=== PATIENT | female | born 1995 | race Caucasian/White ===

== ENCOUNTER 2016-07-15 11:49 | Emergency (ER) | payer OTHER ==
[2016-07-15 12:11] VITALS: BP 108/69
--- NOTE | 2016-07-15 13:10 | UC ---
Complaint Female HPI - HPI Summary HPI Summary: Pt c/o urinary frequency, urgency and dysuria X 3 days. Pt has history of UTI's - History Of Current Complaint Chief Complaint: UCGU Stated Complaint: POSSIBLE UTI Time Seen by Provider: 07/15/16 12:18 Hx Obtained From: Patient Hx Last Menstrual Period: 07/12/16 ?: No Onset/Duration: Gradual Onset, Lasting Days Timing: Constant Severity Initially: Mild Severity Currently: Mild Pain Intensity: 2 Pain Scale Used: 0-10 Numeric Character: Dull, Burning Aggravating Factor(s): Urination - Allergies/Home Medications Allergies/Adverse Reactions: Allergies Allergy/AdvReac Type Severity Reaction Status Date / Time Bee Venom Allergy Intermediate Swelling Verified 07/15/16 12:04 Pollen Extract Allergy Mild Eyes Verified 07/15/16 12:04 Itchy/Swollen/Red/Watery PMH/Surg Hx/FS Hx/Imm Hx Previously Healthy: Yes Endocrine History Of: Denies: Diabetes, Thyroid Disease Cardiovascular History Of: Denies: Cardiac Disorders, Hypertension, Pacemaker/ICD, Congestive Heart Failure, Deep Vein Thrombosis Respiratory History Of: Reports: Asthma - PRN INHALER Denies: COPD, Pneumonia, Pulmonary Embolism GI/ History Of: Denies: Ulcer, Gastrointestinal Bleed, Gall Bladder Disease, Kidney Stones Neurological History Of: Reports: Migraine Denies: TIA, CVA, Dementia, Seizures Psychological History Of: Reports: Anxiety, Depression - CONTROL WITH MEDS, Bipolar Disorder Denies: Schizophrenia Cancer History Of: Denies: Lung Cancer Other History Of: Negative For: Anticoagulant Therapy - Surgical History Surgical History: Yes Surgery Procedure, Year, and Place: 2002 BILATERAL MYRINGOTOMY WITH TUBE INSERTION, [facility] [place]. MULTIPLE MYRINGOTOMY WITH TUBE INSERTIONS, (LAST ONE 02/2014), [place]. HERNIA REPAIR LOWER ABDOMEN X 2, AGE 3 AND 4, - Family History Known Family History: Positive: None, Cardiac Disease, Diabetes - Social History Alcohol Use: None Alcohol Amount: pt reports 10 drinks per day [id number] Substance Use Type: None Substance Use Comment - Amount & Last Used: alcohol - last drink 09/01 Smoking Status (MU): Light Every Day Tobacco Smoker Type: Cigarettes Amount Used/How Often: 4 cigs/day Have You Smoked in the Last Year: Yes Household Exposure Type: Cigarettes - Immunization History Most Recent Influenza Vaccination: 2015 Most Recent Tetanus Shot: UTD Most Recent Pneumonia Vaccination: N/A Vaccination Up to Date: Yes Review of Systems Constitutional: Negative Skin: Negative Eyes: Negative ENT: Negative Respiratory: Negative Cardiovascular: Negative Genitourinary: Dysuria, Frequency, Urgency, Other - low back ache Motor: Negative Neurovascular: Negative Musculoskeletal: Myalgia Neurological: Negative Psychological: Negative All Other Systems Reviewed And Are Negative: Yes Physical Exam Triage Information Reviewed: Yes Appearance: Well-Appearing Vital Signs: Initial Vital Signs Temp 98.1 F 07/15/16 12:07 Pulse 90 07/15/16 12:07 Resp 16 07/15/16 12:07 BP 108/69 07/15/16 12:07 Pulse Ox 97 07/15/16 12:07 Eye Exam: Normal ENT Exam: Normal Neck exam: Normal Respiratory Exam: Normal Cardiovascular Exam: Normal Abdominal Exam: Other Abdomen Description: Positive: CVA Tenderness (R), CVA Tenderness (L) Musculoskeletal Exam: Normal Neurological Exam: Normal Psychological Exam: Normal Skin Exam: Normal Complaint Female Dx - Differential Dx/Diagnosis Differential Diagnosis/HQI/PQRI: Urinary Tract Infection Provider Diagnoses: UTI Discharge - Discharge Plan Condition: Stable Disposition: HOME Prescriptions: Cephalexin CAP* [Keflex 500 CAP*] 500 mg PO Q12H #14 cap Phenazopyridine TAB* [Pyridium 100 mg TAB*] 100 mg PO TID #3 tab Patient Education Materials: Urinary Tract Infection in Women (ED) Referrals: Altagracia Hughes NP [Primary Care Provider] - If Needed Additional Instructions: Please follow up with your PCP or return to clinic as needed. You have indicated that you have been seen by a urologist in the past. Please follow up with this provider as needed.
== END 2016-07-15 12:50 | disposition home or self-care (01) ==
LOC: UCEAST 11:49
DX: N39.0 Urinary tract infection, site not specified (principal); J45.909 Unspecified asthma, uncomplicated; F17.210 Nicotine dependence, cigarettes, uncomplicated; F31.9 Bipolar disorder, unspecified; F41.9 Anxiety disorder, unspecified
CPT/HCPCS: 81003; 84702; 87077; 87086; 87186; 99212; G0463

== ENCOUNTER 2016-07-21 13:39 | Emergency (ER) | payer OTHER ==
[2016-07-21 13:54] VITALS: BP 120/86
--- NOTE | 2016-07-21 15:02 | RAD ---
Indication: Left-sided back pain, hematuria. CT of the abdomen and pelvis was performed without oral or IV contrast administration. Coronal and sagittal reconstructed images were obtained. The lung bases demonstrate no pleural fluid, nodules or masses heart is of normal size without evidence of pericardial effusion. Liver is normal in size. No focal lesions or intrahepatic ductal dilatation is noted. The gallbladder demonstrates no calcified gallstones. No pericholecystic fluid identified. The spleen is normal in size. No adrenal lesions are noted. The kidneys demonstrate no hydronephrosis in either kidney. No retroperitoneal lymphadenopathy. No dilated small bowel. CT of the pelvis demonstrates uterus to be unremarkable. Urinary bladder demonstrates mild diffuse wall thickening. Partially collapsed. No hernias are noted. IMPRESSION: NO EVIDENCE OF OBSTRUCTIVE UROPATHY IS NOTED. PARTIALLY COLLAPSED URINARY BLADDER WITH NONSPECIFIC WALL THICKENING OF THE URINARY BLADDER.
[2016-07-21] MEDS ORDERED: cefTRIAXone VIAL(*) 1,000 MG VIAL IM ONE (15:49)
[2016-07-21] MEDS ORDERED: Lidocaine 1% MPF* 2 ML VIAL ONE (16:03)
--- NOTE | 2016-07-21 16:31 | UC ---
Complaint Female HPI - HPI Summary HPI Summary: SEEN HERE 06/14/16 AND TX WITH KEFLEX FOR A UTI. SX HAVE NOT IMPROVED AT ALL. DYSURIA IS WORSE. YESTERDAY NOTICED BLOOD IN THE URINE. NO FEVER. - History Of Current Complaint Chief Complaint: UCGU Stated Complaint: BLEEDING AND URINARY PAIN Time Seen by Provider: 07/21/16 13:57 Hx Obtained From: Patient Hx Last Menstrual Period: 07/06/16 Onset/Duration: Gradual Onset, Lasting Days, Worse Since Timing: Constant Severity Initially: Moderate Severity Currently: Severe Pain Intensity: 9 Pain Scale Used: 0-10 Numeric Character: Burning Aggravating Factor(s): Urination Alleviating Factor(s): Nothing Associated Signs And Symptoms: Negative: Fever, Back Pain, Vaginal Bleeding/ Discharge, Vaginal Discharge, Nausea - Allergies/Home Medications Allergies/Adverse Reactions: Allergies Allergy/AdvReac Type Severity Reaction Status Date / Time Bee Venom Allergy Intermediate Swelling Verified 07/15/16 12:04 Pollen Extract Allergy Mild Eyes Verified 07/15/16 12:04 Itchy/Swollen/Red/Watery PMH/Surg Hx/FS Hx/Imm Hx Endocrine History Of: Denies: Diabetes, Thyroid Disease Cardiovascular History Of: Denies: Cardiac Disorders, Hypertension, Pacemaker/ICD, Congestive Heart Failure, Deep Vein Thrombosis Respiratory History Of: Reports: Asthma - PRN INHALER Denies: COPD, Pneumonia, Pulmonary Embolism GI/ History Of: Denies: Ulcer, Gastrointestinal Bleed, Gall Bladder Disease, Kidney Stones Neurological History Of: Reports: Migraine Denies: TIA, CVA, Dementia, Seizures Psychological History Of: Reports: Anxiety, Depression - CONTROL WITH MEDS, Bipolar Disorder Denies: Schizophrenia Cancer History Of: Denies: Lung Cancer Other History Of: Negative For: Anticoagulant Therapy - Surgical History Surgical History: Yes Surgery Procedure, Year, and Place: 2002 BILATERAL MYRINGOTOMY WITH TUBE INSERTION, [facility] [place]. MULTIPLE MYRINGOTOMY WITH TUBE INSERTIONS, (LAST ONE 02/2014), [place]. HERNIA REPAIR LOWER ABDOMEN X 2, AGE 3 AND 4, - Family History Known Family History: Positive: Cardiac Disease, Diabetes - Social History Alcohol Use: Occasionally Alcohol Amount: pt reports 10 drinks per day [id number] Substance Use Type: None Substance Use Comment - Amount & Last Used: alcohol - last drink 09/01 Smoking Status (MU): Light Every Day Tobacco Smoker Type: Cigarettes Amount Used/How Often: 4 cigs/day Have You Smoked in the Last Year: Yes Household Exposure Type: Cigarettes - Immunization History Most Recent Influenza Vaccination: 2016 Most Recent Tetanus Shot: UTD Most Recent Pneumonia Vaccination: N/A Vaccination Up to Date: Yes Review of Systems Constitutional: Negative Respiratory: Negative Cardiovascular: Negative Gastrointestinal: Abdominal Pain Genitourinary: Dysuria, Hematuria, Frequency, Urgency All Other Systems Reviewed And Are Negative: Yes Physical Exam Triage Information Reviewed: Yes Appearance: Well-Appearing, No Pain Distress, Well-Nourished Vital Signs: Initial Vital Signs Temp 98.3 F 07/21/16 13:48 Pulse 96 07/21/16 13:48 Resp 18 07/21/16 13:48 BP 120/86 07/21/16 13:48 Pulse Ox 99 07/21/16 13:48 Vital Signs Reviewed: Yes Eyes: Positive: Conjunctiva Clear ENT: Positive: Hearing grossly normal Neck: Positive: Supple, Nontender, No Lymphadenopathy Respiratory Exam: Normal Cardiovascular Exam: Normal Abdomen Description: Positive: Soft, CVA Tenderness (L) - EQUIVOCAL, Other: - SUPRAPUBIC TTP. Negative: CVA Tenderness (R), Distended, Guarding Musculoskeletal: Positive: No Edema Neurological: Positive: Alert Psychological: Positive: Age Appropriate Behavior Skin: Negative: rashes Diagnostics - Laboratory Diagnostic Studies Completed/Ordered: URINE DIP SP. GR 1.010, 3+ LEUKS, 3+ BLOOD , POS NITRITES - Radiology CT ABD/PELVIS W/O CONTRAST Xray Interpretation: Positive (See Comments) - NONSPECIFIC WALL THICKENING OF THE URINARY BLADDER. Radiology Interpretation Completed By: Radiologist Complaint Female Dx - Differential Dx/Diagnosis Provider Diagnoses: HEMORRHAGIC CYSTITIS - Physician Notifications Discussed Patient Care With: DR. VIDAL Time Discussed With Above Provider: 15:40 - ADVISED ROCEPHIN, BACTRIM AND F/U IF NOT IMPROVING Discharge - Discharge Plan Condition: Stable Disposition: HOME Prescriptions: Sulfamethox/Trimethoprim DS* [Bactrim DS 800/160 TAB*] 1 tab PO BID #20 tab Patient Education Materials: Urinary Tract Infection in Women (ED) Forms: *Work Release Referrals: Altagracia Hughes NP [Primary Care Provider] - If Needed Henrik Vidal MD [Medical Doctor] - If Needed Additional Instructions: Cystitis is inflammation of the urinary bladder, usually caused by infection. The clinical manifestations of hemorrhagic cystitis range from microscopic hematuria to extensive bladder hemorrhage with clot formation and obstruction. YOU HAVE RECEIVED AN INJECTION OF THE ANTIBIOTIC ROCEPHIN TODAY AND PLACED ON 10 DAYS OF BACTRIM. TAKE IT FOR THE FULL 10 DAYS. OTC MEDS NEEDED FOR DISCOMFORT. NO SEX UNTIL SYMPTOMS ARE COMPLETELY RESOLVED. STAY WELL HYDRATED. IF YOU DO NOT IMPROVE WITH ERWIN ABOVE TREATMENT SEEK FOLLOW-UP WITH DR. VIDAL (UROLOGY).
== END 2016-07-21 16:16 | disposition home or self-care (01) ==
LOC: UCEAST 13:39
DX: N30.91 Cystitis, unspecified with hematuria (principal); Z32.02 Encounter for pregnancy test, result negative; J45.909 Unspecified asthma, uncomplicated; G43.909 Migraine, unspecified, not intractable, without status migrainosus; F41.8 Other specified anxiety disorders; F31.9 Bipolar disorder, unspecified; F17.210 Nicotine dependence, cigarettes, uncomplicated
CPT/HCPCS: 74176; 81003; 84702; 87077; 87086; 87186; 96372; 99212; G0463; J0696

== ENCOUNTER 2016-10-09 11:28 | Emergency (ER) | payer OTHER ==
[2016-10-09 11:56] VITALS: BP 106/70
--- NOTE | 2016-10-09 12:42 | UC ---
Complaint Female HPI - HPI Summary HPI Summary: complaint of burning with urination for approx 2 days increase in frequency and urgency denies abdominal apin ,back pain, flank pain denies fever and chills not taking any medications for symptoms LMP 09/20/16 - History Of Current Complaint Chief Complaint: UCGU Stated Complaint: URINARY ISSUE Time Seen by Provider: 10/09/16 12:28 Hx Obtained From: Patient Hx Last Menstrual Period: 09/20/16 - Allergies/Home Medications Allergies/Adverse Reactions: Allergies Allergy/AdvReac Type Severity Reaction Status Date / Time Bee Venom Allergy Intermediate Swelling Verified 10/09/16 11:49 Pollen Extract Allergy Mild Eyes Verified 10/09/16 11:49 Itchy/Swollen/Red/Watery Home Medications: Home Medications ARIPiprazole TAB* [Abilify TAB*] 400 mg PO 10/09/16 [History] PMH/Surg Hx/FS Hx/Imm Hx Previously Healthy: Yes - has had hematiuria in the past Other History Of: Negative For: HIV, Hepatitis B, Hepatitis C, Anticoagulant Therapy - Surgical History Surgical History: Yes Surgery Procedure, Year, and Place: 2002 BILATERAL MYRINGOTOMY WITH TUBE INSERTION, [facility] – [place]. MULTIPLE MYRINGOTOMY WITH TUBE INSERTIONS, (LAST ONE 02/2014), [place]. HERNIA REPAIR LOWER ABDOMEN X 2, AGE 3 AND 4 - Family History Known Family History: Positive: Cardiac Disease, Diabetes Negative: Hypertension - Social History Occupation: Employed Full-time Lives: With Family Alcohol Use: Occasionally Alcohol Amount: pt reports 10 drinks per day [id number] Substance Use Type: None Substance Use Comment - Amount & Last Used: alcohol - last drink 09/01 Smoking Status (MU): Light Every Day Tobacco Smoker Type: Cigarettes Amount Used/How Often: 4 cigs/day Have You Smoked in the Last Year: Yes Household Exposure Type: Cigarettes Cessation Counseling: Patient Advised to Stop - Immunization History Most Recent Influenza Vaccination: 2016 Most Recent Tetanus Shot: UTD Most Recent Pneumonia Vaccination: N/A Vaccination Up to Date: Yes Review of Systems Constitutional: Negative Skin: Negative Eyes: Negative ENT: Negative Respiratory: Negative Cardiovascular: Negative Gastrointestinal: Negative Genitourinary: Dysuria, Hematuria, Frequency, Urgency Motor: Negative Neurovascular: Negative Musculoskeletal: Negative Neurological: Negative Psychological: Negative All Other Systems Reviewed And Are Negative: Yes Physical Exam Triage Information Reviewed: Yes Appearance: No Pain Distress, Well-Nourished Vital Signs: Initial Vital Signs Temp 98.3 F 10/09/16 11:51 Pulse 81 10/09/16 11:51 Resp 18 10/09/16 11:51 BP 106/70 10/09/16 11:51 Pulse Ox 100 10/09/16 11:51 Vital Signs Reviewed: Yes Eyes: Positive: Conjunctiva Clear ENT: Positive: Pharynx normal, TMs normal Neck: Positive: No Lymphadenopathy Respiratory: Positive: Lungs clear, Normal breath sounds, No respiratory distress Cardiovascular: Positive: RRR, No Murmur, Pulses Normal Abdomen Description: Positive: Nontender, No Organomegaly, Soft. Negative: CVA Tenderness (R), CVA Tenderness (L), Distended, Guarding Bowel Sounds: Positive: Present Musculoskeletal: Positive: No Edema Neurological: Positive: Alert Psychological Exam: Normal Skin Exam: Normal Complaint Female Dx - Differential Dx/Diagnosis Differential Diagnosis/HQI/PQRI: Ureteral Stone, Urinary Tract Infection Provider Diagnoses: UTI Discharge - Discharge Plan Condition: Stable Disposition: HOME Patient Education Materials: Urinary Tract Infection in Women (ED) Additional Instructions: Please start antibiotic as directed Increase fluids and rest Take acetaminophen or ibuprofen for fever or pain Please review your discharge instructions. If your symptoms do not improve please call your primary care provider or return to urgent care.
== END 2016-10-09 13:00 | disposition home or self-care (01) ==
LOC: UCEAST 11:28
DX: N39.0 Urinary tract infection, site not specified (principal); Z72.0 Tobacco use
CPT/HCPCS: 81003; 84702; 87086; 99212; G0463

== ENCOUNTER 2017-05-07 11:42 | Emergency (ER) | payer OTHER ==
--- OUTSIDE RECORDS SUMMARY | 2017-05-07 12:33 | XMS REPORT ---
:1995 Author Care Team Providers Name Role Phone Kain Moon MD Unavailable Colby Flower MD Primary Care Provider Yovani Trevino Unavailable Reason for Referral Referral Problems All Visits Effective Date(s) Provider Condition Status Asthma 04/11/2017 James Lezama MD Active Attention-deficit Hyperactivity 04/11/2017 James Lezama MD Active Disorder Bipolar Disorder Nos 04/11/2017 James Lezama MD Active Depression 04/11/2017 James Lezama MD Active Hearing Loss 04/11/2017 James Lezama MD Active Note: 2nd to chronic ear infections Hepatitis 04/11/2017 James Lezama MD Active Otitis Externa 04/11/2017 James Lezama MD Active Plan of Care Pending Tests Order Diagnosis Results Due Ordering Provider Lab Alkaline Phosphatase; 04/27/17 James Lezama MD Bilirubin, Total; BUN; Calcium; Albumin; Protein, Total; Sodium; Potassium; Chloride; Carbon Dioxide Content; Creatinine; AST; ALT; HCV RNA Detect/Quant Lab Urinalysis with Culture 04/27/17 James Lezama MD if Indicated Lab HCV Genotype After 05/16/17 James Lezama MD Amplification Future Appointments Date Time [place] [facility] 4:00PM [facility] Yovani Harvey [facility] Instructions No Instructions Recorded Medications Current Medications (continue as prescribed) Abilify 20 MG Tablet 04/11/2017 Diagnosis: Ciprodex 0.3-0.1 % Suspension 04/11/2017 Diagnosis: Acute actinic otitis externa, bilateral 4 gtt in ears BID x 7 days Medications Administered No Administered Medications Recorded Vital Signs Vital Name 04/11/2017 02:10P Blood Pressure Sitting L 115/83 BP Cuff Size Regular Pulse Rate-Sitting (bpm) 95 Pulse Rhythm Regular Respiration Rate (breaths/min) 20 Temp-Tympanic (F) 98.3 Height (in) 67.75 Weight (lb) 163.1875 Body Mass Index (kg/m2) 25.0 Body Surface Area (m2) 1.87 Pain Level 0 Oxygen Saturation (%) 99 Lab Results No Lab Results Recorded For Specified Dates History of Present Illness No History of Present Illness Recorded Social History Description Last Updated Normal appetite 04/30/2017 Drug use 5 months clean cocaine , pot 04/30/2017 No serious weight loss attempts 04/30/2017 Former smoker 04/30/2017 No high-fat diet 04/30/2017 Lives alone 04/30/2017 Diet does not need reduction of caloric intake 04/30/2017 Diet needs elimination of junk food 04/30/2017 Caffeine use 2-3 cups daily 04/30/2017 Alcohol use rare 04/30/2017 Tobacco use 3-4 cigarettes daily 04/30/2017 1 meals per day 04/30/2017 Not taking vitamin supplements 04/30/2017 Single 04/30/2017 Diet provides sufficient food variety 04/30/2017 Diet provides sufficient fruit 04/30/2017 Diet provides sufficient vegetables 04/30/2017 0 snacks per day 04/30/2017 A high-salt diet not from processed foods 04/30/2017 A high-sugar diet not including sweet snacks 04/30/2017 Unemployed 04/30/2017 Smoking Status Unknown Procedures and Surgical/Medical History Surgical History Last Updated History of inguinal hernia repair bilateral at age 3 and 4 yrs old 04/30/2017 History of otolaryngologic surgery bilateral ear tubes since age 7 yr 2017 old Medical History Last Updated Hearing loss 04/30/2017 Date of last menstruation 04/07/2017 04/30/2017 A recent examination by an staff scientist 201604/30/2017 Denied sexual activity 04/30/2017 Normal history of cervical Pap smear 04/30/2017 History of hepatitis, C virus 04/30/2017 History of varicella 04/30/2017 History of psychiatric disorders adhd; bipolar disorder 04/30/2017 History of asthma 04/30/2017 History of depression 04/30/2017 History of hepatic disorders 04/30/2017 Last saw a dentist 08/201604/30/2017 Family History Description Last Updated Father 49 years old 04/30/2017 Mother 40 years old 04/30/2017 Father in good health and denies significant illness 04/30/2017 Maternal grandmother's history of diabetes mellitus 04/30/2017 Maternal history of cancer cercival cancer 04/30/2017 Maternal grandmother's history of cancer cervical cancer 04/30/2017 Maternal grandmother's history of respiratory disorder copd 04/30/2017 Paternal history of acute myocardial infarction 04/30/2017 Paternal grandfather's history of acute myocardial infarction 04/30/2017 Paternal grandmother's history of coronary artery disease 04/30/2017 Review of Systems No Review of Systems Recorded Functional and Cognitive Status Description Oriented to time, place, and person Physical Exam No Physical Exam Recorded Immunizations No Immunizations Recorded Allergies Substance Type Reaction Effective Status FLOWER POLLEN Allergy swelling 04/11/2017 Active Bees Allergy Skin Rashes/Hives 04/11/2017 Active Encounters Encounter Provider Location Date Diagnosis [facility] Admit James Lezama MD *[facility] - Family 04/11/2017 f/u for [facility] Chart Update from Flo Griffiths MD 01/16/2017 Phone Call Insurance Plan Name Member ID Group # Subscriber Relationship Effective Dates 1 - [facility] [id number] [facility] Capitated Advance Directives No Advance Directives Recorded
--- OUTSIDE RECORDS SUMMARY | 2017-05-07 12:34 | XMS REPORT ---
:1995 Author Care Team Providers Name Role Phone Colby Flower MD Primary Care Provider Yovani [...] ALT; HCV RNA Detect/Quant Lab Urinalysis with 04/27/17 James Lezama MD Culture if Indicated Future Appointments Date Time Location Provider [facility] [place] Problem Management 05/21/2017 4:00PM *[facility] Yovani Harvey [facility] Future Tests Order Diagnosis Results Due Ordering Provider Referral Specialists ENT Acute actinic otitis 04/11/17 James Lezama MD externa, bilateral Instructions No Instructions Recorded Medications Current Medications [...] Social History Description Last Updated Normal appetite 04/12/2017 Drug use 5 months clean cocaine , pot 04/12/2017 No serious weight loss attempts 04/12/2017 Former smoker 04/12/2017 No high-fat diet 04/12/2017 Lives alone 04/12/2017 Diet does not need reduction of caloric intake 04/12/2017 Diet needs elimination of junk food 04/12/2017 Caffeine use 2-3 cups daily 04/12/2017 Alcohol use rare 04/12/2017 Tobacco use 3-4 cigarettes daily 04/12/2017 1 meals per day 04/12/2017 Not taking vitamin supplements 04/12/2017 Single 04/12/2017 Diet provides sufficient food variety 04/12/2017 Diet provides sufficient fruit 04/12/2017 Diet provides sufficient vegetables 04/12/2017 0 snacks per day 04/12/2017 A high-salt diet not from processed foods 04/12/2017 A high-sugar diet not including sweet snacks 04/12/2017 Unemployed 04/12/2017 Smoking Status Unknown Procedures and Surgical/Medical History Procedures CPT-4 Diagnosis Performing Service Service Date Provider Location 340B Charge 21314 Acute hepatitis James Lezama MD 04/11/2017 ([facility]) C with hepatic coma Surgical History Last Updated History of inguinal hernia repair bilateral at age 3 and 4 yrs old 04/12/2017 History of otolaryngologic surgery bilateral ear tubes since age 7 yr 2017 old Medical History Last Updated Hearing loss 04/12/2017 Date of last menstruation 04/07/2017 04/12/2017 A recent examination by an generator operator straight bevel gear 201604/12/2017 Denied sexual activity 04/12/2017 Normal history of cervical Pap smear 04/12/2017 History of hepatitis, C virus 04/12/2017 History of varicella 04/12/2017 History of psychiatric disorders adhd; bipolar disorder 04/12/2017 History of asthma 04/12/2017 History of depression 04/12/2017 History of hepatic disorders 04/12/2017 Last saw a dentist 08/201604/12/2017 Family History Description Last Updated Father 49 years old 04/12/2017 Mother 40 years old 04/12/2017 Father in good health and denies significant illness 04/12/2017 Maternal grandmother's history of diabetes mellitus 04/12/2017 Maternal history of cancer cercival cancer 04/12/2017 Maternal grandmother's history of cancer cervical cancer 04/12/2017 Maternal grandmother's history of respiratory disorder copd 04/12/2017 Paternal history of acute myocardial infarction 04/12/2017 Paternal grandfather's history of acute myocardial infarction 04/12/2017 Paternal grandmother's history of coronary artery disease 04/12/2017 Review of Systems No Review of Systems Recorded Functional and Cognitive Status Description Oriented to time, place, and person Physical Exam No Physical Exam Recorded Immunizations No Immunizations Recorded Allergies Substance Type Reaction Effective Status FLOWER POLLEN Allergy swelling 04/11/2017 Active Bees Allergy Skin Rashes/Hives 04/11/2017 Active Encounters Encounter Provider Location Date Diagnosis [facility] [place] Hospital Admit James Lezama MD *[facility] - Family 04/11/2017 f/u for [facility] Chart Update from Flo Griffiths MD 01/16/2017 Phone Call Insurance Plan Name Member ID Group # Subscriber Relationship Effective Dates 1 - [facility] [id number] [facility] Capitated Advance Directives No Advance Directives Recorded
[2017-05-07 14:25] LABS: ABS Basophils 0 10^3/ul (0-0.2); ABS Eosinophils 0.1 10^3/ul (0-0.6); ABS Lymphocytes 1.3 10^3/ul (1.0-4.8); ABS Monocytes 0.5 10^3/ul (0-0.8); ABS Neutrophils 3.5 10^3/ul (1.5-7.7); ABS Nucleated RBC 0 10^3/ul; Eosinophil % 1.8 % (0-6); Hematocrit 39 % (35-47); Hemoglobin 12.7 g/dl (12.0-16.0); Lymphocyte % 23.9 % (25-47); Mean Corpuscular HGB Conc 33 g/dl (31-36); Mean Corpuscular Hemoglobin 29 pg (27-31); Mean Corpuscular Volume 88 fL (80-97); Mean Platelet Volume 7 um3 (7.4-10.4); Nucleated Red Blood Cells % 0; Platelet Count 253 10^3/ul (150-450); Red Cell Distribution Width 13 % (10.5-15); White Blood Count 5.4 10^3/ul (3.5-10.8)
[2017-05-07 14:42] LABS: EGFR Non-African American 81.1 (>60)
[2017-05-07 15:14] VITALS: BP 112/70
== END 2017-05-07 15:54 | disposition left against medical advice (07) ==
LOC: ED 11:42
DX: R11.2 Nausea with vomiting, unspecified (principal); Z53.21 Procedure and treatment not carried out due to patient leaving prior to being seen by health care provider
CPT/HCPCS: 36415; 80053; 82150; 82550; 83605; 83690; 84702; 85025; 86140

== ENCOUNTER 2017-05-16 12:39 | Emergency (ER) | payer OTHER ==
--- OUTSIDE RECORDS SUMMARY | 2017-05-16 12:50 | XMS REPORT ---
[...] Amplification Future Appointments Date Time Location Provider [facility] [place] Problem Management 05/21/2017 4:00PM *[facility] - [facility] Instructions No Instructions Recorded Medications Current [...] 04/07/2017 04/30/2017 A recent examination by an route delivery service driver [id number]/30/2017 Denied sexual activity 04/30/2017 Normal history [...] of Systems Recorded Functional and Cognitive Status No Functional or Cognitive Status Recorded Physical Exam No Physical Exam Recorded Immunizations No Immunizations Recorded Allergies Substance Type Reaction Effective Status FLOWER POLLEN Allergy swelling 04/11/2017 Active Bees Allergy Skin Rashes/Hives 04/11/2017 Active Encounters Encounter Provider Location Date Diagnosis Chart Update James Lezama MD 05/07/2017 [facility] [place] Hospital Admit James Lezama MD *[facility] - Family 04/11/2017 f/u for [facility] Chart Update from Flo Griffiths MD 01/16/2017 Phone Call Insurance Plan Name Member ID Group # Subscriber Relationship Effective Dates 1 - [facility] [id number] [facility] Capitated Advance Directives No Advance Directives Recorded
[2017-05-16 13:01] VITALS: BP 97/66
--- NOTE | 2017-05-16 13:06 | UC ---
Complaint Female HPI - HPI Summary HPI Summary: Pt presents for 5 days of urinary pressure, frequency, and burning. She tells me that she has had many UTIs in the past and this feels the same. She had "rough sex" about a week ago and thinks maybe that was the cause. Admits to some right flank pain, but that has improved. Denies fever, chills, SOB, abdominal pain, n/v/d/c. Denies vaginal discharge, bleeding, or odor. She does not want STD testing. - History Of Current Complaint Hx Obtained From: Patient Hx Last Menstrual Period: 05/06/16 Onset/Duration: Gradual Onset Severity Initially: Moderate Severity Currently: Moderate Pain Intensity: 7 Pain Scale Used: 0-10 Numeric Character: Burning Aggravating Factor(s): Urination <Supa Shine - Last Filed: 05/16/17 13:56> <Lacey Gonzalez - Last Filed: 05/16/17 14:13> - History Of Current Complaint Chief Complaint: UCGU Stated Complaint: BURING, FREQUENT URINATION, PAIN IN SIDE Time Seen by Provider: 05/16/17 13:05 - Allergies/Home Medications Allergies/Adverse Reactions: Allergies Allergy/AdvReac Type Severity Reaction Status Date / Time MS Bee Venom [Bee Venom] Allergy Intermediate Swelling Verified 05/16/17 13:01 MS Pollen Extract Allergy Mild Eyes Verified 05/16/17 13:01 [Pollen Extract] Itchy/Swollen/Red/Watery Home Medications: Home Medications ARIPiprazole [Abilify Maintena] 400 mg IM MONTHLY 05/16/17 [History Confirmed ] Dextroamphetamine/Amphetamine [Adderall 30 mg-] 1 tab PO DAILY 05/16/17 [ History Confirmed 05/16/17] PMH/Surg Hx/FS Hx/Imm Hx - Additional Past Medical History Additional PMH: liver cirrhosis Previously Healthy: Yes Other History Of: Negative For: HIV, Hepatitis B, Hepatitis C, Anticoagulant Therapy - Surgical History Surgical History: Yes Surgery Procedure, Year, and Place: 2002 [place] [facility] [place] WITH TUBE INSERTIONS, (LAST ONE 02/2014), [place]. HERNIA REPAIR LOWER ABDOMEN X 2, AGE 3 AND 4 - Family History Known Family History: Positive: Cardiac Disease, Diabetes Negative: Hypertension - Social History Alcohol Use: Occasionally Alcohol Amount: pt reports 10 drinks per day [id number] Substance Use Type: Marijuana Substance Use Comment - Amount & Last Used: alcohol - last drink 09/01 Smoking Status (MU): Light Every Day Tobacco Smoker Type: Cigarettes Amount Used/How Often: 4 cigs/day Have You Smoked in the Last Year: Yes Household Exposure Type: Cigarettes - Immunization History Most Recent Influenza Vaccination: 2015 Most Recent Tetanus Shot: UTD Most Recent Pneumonia Vaccination: N/A Vaccination Up to Date: Yes <Supa Shine - Last Filed: 05/16/17 13:56> Review of Systems Constitutional: Negative Skin: Negative Respiratory: Negative Cardiovascular: Negative Genitourinary: Dysuria, Frequency, Urgency Musculoskeletal: Negative Neurological: Negative Psychological: Negative All Other Systems Reviewed And Are Negative: Yes <Supa Shine - Last Filed: 05/16/17 13:56> Physical Exam Triage Information Reviewed: Yes Appearance: Well-Appearing, No Pain Distress, Well-Nourished Vital Signs: Initial Vital Signs Temp 97.9 F 05/16/17 12:55 Pulse 82 05/16/17 12:55 Resp 18 05/16/17 12:55 BP 97/66 05/16/17 12:55 Pulse Ox 100 05/16/17 12:55 Vital Signs Reviewed: Yes Neck: Positive: Supple, Nontender, No Lymphadenopathy Respiratory: Positive: Lungs clear, Normal breath sounds, No respiratory distress Cardiovascular: Positive: RRR, No Murmur Abdomen Description: Positive: No Organomegaly, Soft, Other: - Mild suprapubic tenderness. Negative: CVA Tenderness (R), CVA Tenderness (L), Distended, Guarding Bowel Sounds: Positive: Present Neurological: Positive: Alert Psychological: Positive: Age Appropriate Behavior Skin: Negative: rashes <Supa Shine - Last Filed: 05/16/17 13:56> Vital Signs: Initial Vital Signs Temp 97.9 F 05/16/17 12:55 Pulse 82 05/16/17 12:55 Resp 18 05/16/17 12:55 BP 97/66 05/16/17 12:55 Pulse Ox 100 05/16/17 12:55 <Lacey Gonzalez - Last Filed: 05/16/17 14:13> Complaint Female Dx - Course Course Of Treatment: Urine with 1+ protein, 2+ blood, and 1+ Leuks. Will treat with Bactrim for 5 days and pyridium and call her with urine results - Differential Dx/Diagnosis Provider Diagnoses: UTI <Supa Shine - Last Filed: 05/16/17 13:56> Discharge <Supa Shine - Last Filed: 05/16/17 13:56> <Lacey Gonzalez - Last Filed: 05/16/17 14:13> - Discharge Plan Condition: Stable Disposition: HOME Prescriptions: Phenazopyridine 200 mg (NF) [Pyridium 200 MG tab *] 200 mg PO TID PRN #9 tab PRN Reason: Pain Sulfamethox/Trimethoprim DS* [Bactrim DS 800/160 TAB*] 1 tab PO BID #10 tab Patient Education Materials: Urinary Tract Infection in Women (ED) Referrals: No Primary Care Phys,NOPCP [Primary Care Provider] - Additional Instructions: If you develop a fever, shortness of breath, chest pain, new or worsening symptoms - please call your PCP or go to the ED. Attestation Statement User Type: Provider - I was available for consult. This patient was seen by the BERTHA. The patient was not presented to, seen by, or examined by me. Madonna <Lacey Gonzalez - Last Filed: 05/16/17 14:13>
--- NOTE | 2017-05-18 13:07 | UC ---
- Progress Note Progress Note: URINE CULTURE WITH ESBL E.COLI. STOP BACTRIM. START AUGMENTIN TWICE DAILY X 7 DAYS. ERX SENT TO [facility]. FOLLOW-UP WITH DR. MENDENHALL (INFECTIOUS DISEASES) TO DISCUSS THIS HIGHLY RESISTANT BACTERIA. - JENNIFER JACKSON MD
== END 2017-05-16 13:46 | disposition home or self-care (01) ==
LOC: UCEAST 12:39
DX: N39.0 Urinary tract infection, site not specified (principal); B96.20 Unspecified Escherichia coli [E. coli] as the cause of diseases classified elsewhere; F17.210 Nicotine dependence, cigarettes, uncomplicated
CPT/HCPCS: 81003; 81025; 87077; 87086; 87186; 99212; G0463

== ENCOUNTER 2018-01-11 11:15 | Emergency (ER) | payer OTHER ==
[2018-01-11 12:18] VITALS: BP 122/78
--- NOTE | 2018-01-11 13:08 | UC ---
Complaint Female HPI - HPI Summary HPI Summary: 22 y/o female presents to the urgent care c/o increased frequency and burning on urination on and off for the past 2 weeks ago. Pt states she saw mild blood in urine this AM. However it can be her period since it started on 2017 and she still had it yesterday. Pt als c/o of Rt ear pain for the past week. Pt has Hx of recurrent otitis w/ tube placed about [address] Wilkinson. Ear pain is 3/10. Pt denies pelvic pain, lower back pain, flank pain , fever, Hx of STD's, vaginal discharge. chest pain, abdominal pain, N/v/D. She recently screened for STD's at [facility] about 1 week ago and were all negative. - History Of Current Complaint Chief Complaint: UCGU Stated Complaint: URINARY COMPLAINT Time Seen by Provider: 01/11/18 13:02 Hx Obtained From: Patient Hx Last Menstrual Period: 01/07/18 Onset/Duration: Gradual Onset, Lasting Weeks - 2 weeks, Still Present, Worse Since - today Timing: Intermittent, Lasting Seconds Severity Initially: Mild Severity Currently: Moderate Pain Intensity: 7 Pain Scale Used: 0-10 Numeric Character: Burning Aggravating Factor(s): Urination Alleviating Factor(s): Nothing Associated Signs And Symptoms: Positive: Negative. Negative: Fever, Back Pain, Vaginal Bleeding/Discharge, Genital Swelling, Genital Blisters - Risk Factors Ectopic Risk Factor: Negative Ovarian Torsion Risk Factor: Negative - Allergies/Home Medications Allergies/Adverse Reactions: Allergies Allergy/AdvReac Type Severity Reaction Status Date / Time MS Bee Venom [Bee Venom] Allergy Intermediate Swelling Verified 01/11/18 12:09 MS Pollen Extract Allergy Mild Eyes Verified 01/11/18 12:09 [Pollen Extract] Itchy/Swollen/Red/Watery PMH/Surg Hx/FS Hx/Imm Hx Previously Healthy: Yes Respiratory History: Asthma Psychological History: Anxiety Other History Of: Negative For: HIV, Hepatitis B, Hepatitis C, Anticoagulant Therapy - Surgical History Surgical History: Yes Surgery Procedure, Year, and Place: 2002 BILATERAL MYRINGOTOMY WITH TUBE INSERTION, [facility] [place] MULTIPLE MYRINGOTOMY WITH TUBE INSERTIONS, (LAST ONE 02/2014), [place]. HERNIA REPAIR LOWER ABDOMEN X 2, AGE 3 AND 4 - Family History Known Family History: Positive: Cardiac Disease, Diabetes Negative: Hypertension - Social History Occupation: Student Lives: With Family Alcohol Use: None Alcohol Amount: pt reports 10 drinks per day [id number] Substance Use Type: None Substance Use Comment - Amount & Last Used: alcohol - last drink 09/01 Smoking Status (MU): Light Every Day Tobacco Smoker Type: Cigarettes Amount Used/How Often: 4 cigs/day Have You Smoked in the Last Year: Yes Household Exposure Type: Cigarettes - Immunization History Most Recent Influenza Vaccination: 2015 Most Recent Tetanus Shot: UTD Most Recent Pneumonia Vaccination: N/A Vaccination Up to Date: Yes Review of Systems Constitutional: Negative Skin: Negative Eyes: Negative ENT: Ear Ache - Rt ear pain Respiratory: Negative Cardiovascular: Negative Gastrointestinal: Negative Genitourinary: Dysuria, Hematuria, Frequency, Urgency Motor: Negative Neurovascular: Negative Musculoskeletal: Negative Neurological: Negative Psychological: Negative Is Patient Immunocompromised?: No All Other Systems Reviewed And Are Negative: Yes Physical Exam - Summary Physical Exam Summary: VITAL SIGNS: Reviewed. GENERAL: Patient is a well developed and nourished female adolescent who is sitting comfortable in the examining table. Patient is not in any acute respiratory distress. HEAD AND FACE: No signs of trauma. No ecchymosis, hematomas or skull depressions. No sinus tenderness. EYES: PERRLA, EOMI x 2, No injected conjunctiva, clear watery eyes, no nystagmus. No photophobia. EARS: Hearing grossly intact. Rt external ear canal w/ erythema and yellowish purulent ear discharge, unable to visualize Rt TM since also a lot of cerumen. LF external ear canal clear, LF TM WNL. MOUTH: pharynx with no erythema, no exudates,no palatal petechiae. no B/L tonsillar enlargement Uvula in midline. NECK: Supple, trachea is midline, no lymphadenopathy, no JVD, no carotid bruit, no c-spine tenderness, neck with full ROM. CHEST: Symmetric, no tenderness at palpation LUNGS: Clear to auscultation bilaterally. No wheezing or crackles. CVS: Regular rate and rhythm, S1 and S2 present, no murmurs or gallops appreciated. ABDOMEN: Soft, non-tender. No signs of distention. No rebound no guarding, and no masses palpated. Bowel sounds are normal. BACK:no scoliosis or lesions, non tender to palpation, No B/L CVA tenderness EXTREMITIES: FROM in all major joints, no edema, no cyanosis or clubbing. NEURO: Alert and oriented x 3. No acute neurological deficits. Speech is normal and follows commands. SKIN: Dry and warm Triage Information Reviewed: Yes Vital Signs: Initial Vital Signs Temp 97.3 F 01/11/18 12:10 Pulse 94 01/11/18 12:10 Resp 18 01/11/18 12:10 BP 122/78 01/11/18 12:10 Pulse Ox 100 01/11/18 12:10 Complaint Female Dx - Course Course Of Treatment: 22 y/o female presents to the urgent care c/o increased frequency and burning on urination on and off for the past 2 weeks ago. Pt states she saw mild blood in urine this AM. However it can be her period since it started on 01/07/2018 and she still had it yesterday. Pt als c/o of Rt ear pain for the past week. Pt has Hx of recurrent otitis w/ tube placed about [address] Wilkinson. Ear pain is 3/10. Pt denies pelvic pain, lower back pain, flank pain, fever, Hx of STD's, vaginal discharge. chest pain, abdominal pain, N/v/D. She recently screened for STD's at [facility] about 1 week ago and were all negative. Hx obtained. Pt w/ RT otitis externa and Dysuria on examination. UA and test ordered. UA results: Leukoesterase 1+. test: negative. Pt Rx . Pyridium 100mg PO TID x 2 days. lso Cortisporin otic drops for her external otitis. Advised to increase fluid intake. Urine sent for culture if any abnormality Pt will be notified for further treatment. Pt advised If symptoms do not improve to return to the urgent care or f/u with PCP. Pt understood and agreed. Left the clinic ambulating. - Differential Dx/Diagnosis Differential Diagnosis/HQI/PQRI: Cervicitis, Pelvic Inflammatory Disease, , Renal Colic, Sexually Transmitted Disease, Ureteral Stone, Urinary Tract Infection, Other - otitis meida or externa. Provider Diagnoses: 1- Dysuria. 2-RT otitis externa Discharge - Sign-Out/Discharge Documenting (check all that apply): Patient Departure - D/c home All imaging exams completed and their final reports reviewed: No Studies - Discharge Plan Condition: Stable Disposition: HOME Prescriptions: Neomyc/Polym/HC 1% OTIC SUSP* [Cortisporin Otic Susp 1%*] 4 drop RIGHT EAR QID # 1 btl Phenazopyridine TAB* [Pyridium 100 mg TAB*] 100 mg PO TID #6 tab Patient Education Materials: Otitis Externa (ED), Dysuria (ED) Referrals: [facility] [place] [facility]IAN REFERRAL [Outside] - 3 Days Javier Garcia MD [Medical Doctor] - If Needed Additional Instructions: 1- Please take Pyridium 100 mg PO TID x 2 days to alleviate urinary symptoms. Increase increase fluid intake. drink cranberry juice. 2-Urine sent for culture if any abnormality, you will be notified for further treatment. 3-If symptoms do not improve please return to the urgent care or f/u with PCP for further management 4- Apply Cortisporin otic drops as directed. If not improvement of symptoms please f/u w/ your ENT Dr Wilkinson in 3 days for further management . - Billing Disposition and Condition Condition: STABLE Disposition: Home
--- NOTE | 2018-01-13 08:39 | UC ---
- Progress Note Progress Note: PLEASE CALL PATIENT. URINE CULTURE POSITIVE FOR STAPH SAPROPHYTICUS. BACTRIM SENT TO [facility]. TAKE TWICE DAILY FOR FULL 5 DAYS. STAY WELL- HYDRATED. FOLLOW-UP WITH PCP IF NEEDED. - JENNIFER JACKSON MD. Discharge - Sign-Out/Discharge Documenting (check all that apply): Post-Discharge Follow Up All imaging exams completed and their final reports reviewed: No Studies - Discharge Plan Condition: Stable Disposition: HOME Prescriptions: Neomyc/Polym/HC 1% OTIC SUSP* [Cortisporin Otic Susp 1%*] 4 drop RIGHT EAR QID # 1 btl Phenazopyridine TAB* [Pyridium 100 mg TAB*] 100 mg PO TID #6 tab Sulfamethox/Trimethoprim DS* [Bactrim DS 800/160 TAB*] 1 tab PO BID #10 tab Patient Education Materials: Otitis Externa (ED), Dysuria (ED) Referrals: [facility] [place] [facility] REFERRAL [Outside] - 3 Days Javier Garcia MD [Medical Doctor] - If Needed Additional Instructions: 1- Please take Pyridium 100 mg PO TID x 2 days to alleviate urinary symptoms. Increase increase fluid intake. drink cranberry juice. 2-Urine sent for culture if any abnormality, you will be notified for further treatment. 3-If symptoms do not improve please return to the urgent care or f/u with PCP for further management 4- Apply Cortisporin otic drops as directed. If not improvement of symptoms please f/u w/ your ENT Dr Wilkinson in 3 days for further management . - Billing Disposition and Condition Condition: STABLE Disposition: Home
== END 2018-01-11 13:37 | disposition home or self-care (01) ==
LOC: UCEAST 11:15
DX: F17.210 Nicotine dependence, cigarettes, uncomplicated (principal); R03.0 Elevated blood-pressure reading, without diagnosis of hypertension; H60.91 Unspecified otitis externa, right ear; B95.7 Other staphylococcus as the cause of diseases classified elsewhere
CPT/HCPCS: 81003; 84702; 87077; 87086; 99212; G0463

== ENCOUNTER 2018-01-23 20:31 | Emergency (ER) | payer OTHER ==
[2018-01-23 20:38] VITALS: BP 127/84
[2018-01-23] MEDS ORDERED: Neomyc/Polym/HC 1% OTIC SUSP* **OTIC LEFT EAR ONE (20:45)
[2018-01-23] MEDS ORDERED: Bupivacaine 0.25% SDV PF* 10 ML VIAL INJ ONE (20:45)
[2018-01-23] MEDS ORDERED: Ibuprofen TAB* 400 MG PO ONE (20:45)
[2018-01-23] MEDS ORDERED: Lidocaine 1% MPF* 2 ML VIAL INJ ONE (20:47)
[2018-01-23] MEDS ORDERED: Lidocaine 1%* 5 ML VIAL ONE (20:55)
--- NOTE | 2018-01-23 20:59 | UC ---
Ear Complaint HPI - HPI Summary HPI Summary: 22yo F with hx of recurrent otitis externa presents with 1.5hr of severe L ear pain. Cleans her ears several times a day for "excessive drainage." Sees Dr Garcia from ENT for these issues. Generally takes Cipro drops. Denies URI sx or fevers. - History of Current Complaint Chief Complaint: UCEar Stated Complaint: EAR PAIN Time Seen by Provider: 01/23/18 20:40 Hx Obtained From: Patient Hx Last Menstrual Period: 10 days ago Pain Intensity: 10 - Allergies/Home Medications Allergies/Adverse Reactions: Allergies Allergy/AdvReac Type Severity Reaction Status Date / Time bee venom protein (honey bee) Allergy Swelling Verified 01/23/18 20:39 pollen extracts Allergy Swelling Verified 01/23/18 20:39 PMH/Surg Hx/FS Hx/Imm Hx Previously Healthy: No - recurrent otitis externa Other History Of: Negative For: HIV, Hepatitis B, Hepatitis C, Anticoagulant Therapy - Surgical History Surgical History: Yes Surgery Procedure, Year, and Place: 2002 BILATERAL MYRINGOTOMY WITH TUBE INSERTION, [facility] [place]. MULTIPLE MYRINGOTOMY WITH TUBE INSERTIONS, (LAST ONE 02/2014), [place]. HERNIA REPAIR LOWER ABDOMEN X 2, AGE 3 AND 4 - Family History Known Family History: Positive: Cardiac Disease, Diabetes Negative: Hypertension - Social History Alcohol Use: None Alcohol Amount: pt reports 10 drinks per day [id number] Substance Use Type: None Substance Use Comment - Amount & Last Used: alcohol - last drink 09/01 Smoking Status (MU): Light Every Day Tobacco Smoker Type: Cigarettes Amount Used/How Often: 4 cigs/day Have You Smoked in the Last Year: Yes Household Exposure Type: Cigarettes - Immunization History Most Recent Influenza Vaccination: 2016 Most Recent Tetanus Shot: UTD Most Recent Pneumonia Vaccination: N/A Vaccination Up to Date: Yes Review of Systems Constitutional: Negative Skin: Negative Eyes: Negative ENT: Other - L ear pain, drainage Respiratory: Negative All Other Systems Reviewed And Are Negative: Yes Physical Exam Triage Information Reviewed: Yes Appearance: Well-Appearing, Well-Nourished, Pain Distress Vital Signs: Initial Vital Signs Temp 98.9 F 01/23/18 20:36 Pulse 95 01/23/18 20:36 Resp 12 01/23/18 20:36 BP 127/84 01/23/18 20:36 Pulse Ox 100 01/23/18 20:36 Vital Signs Reviewed: Yes Eyes: Positive: Conjunctiva Clear ENT: Positive: Other - L TM clear. Canal is erythematous but not edematous. Min pain with movement of pinnae. Mild erythema of pinnae, no mastoid tenderness. Moderate soft wax. R canal has large amout of soft wax. Neck: Positive: Nontender, No Lymphadenopathy Respiratory: Positive: Lungs clear Cardiovascular: Positive: RRR Neurological: Positive: Alert Skin Exam: Normal Ear Complaint Course/Dx - Course Course Of Treatment: Lidocaine into ear helped pain. Start cortisporin gtt available here. Pharmacies closed. - Differential Dx/Diagnosis Differential Diagnosis/HQI/PQRI: Otitis Externa, Otitis Media, Perforated TM Provider Diagnoses: Acute otitis externa, Left ear Discharge - Sign-Out/Discharge Documenting (check all that apply): Patient Departure All imaging exams completed and their final reports reviewed: No Studies - Discharge Plan Condition: Improved Disposition: HOME Patient Education Materials: Otitis Externa (ED) Referrals: Javier Garcia MD [Medical Doctor] - Additional Instructions: Tylenol/ibuprofen as needed for discomfort. Drops every 6hrs until well. Return if worse, new symptoms or other concerns. - Billing Disposition and Condition Condition: IMPROVED Disposition: Home - Attestation Statements Document Initiated by Scribe: No
== END 2018-01-23 21:20 | disposition home or self-care (01) ==
LOC: UCEAST 20:31
DX: H60.502 Unspecified acute noninfective otitis externa, left ear (principal); Z91.030 Bee allergy status; F17.210 Nicotine dependence, cigarettes, uncomplicated
CPT/HCPCS: 99212; A9270-GY; G0463

== ENCOUNTER 2018-03-26 17:48 | Emergency (ER) | payer OTHER ==
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
[2018-03-26 18:33] VITALS: BP 130/85
== END 2018-03-26 18:33 | disposition home or self-care (01) ==
LOC: ED 17:48
DX: R07.89 Other chest pain (principal); J45.909 Unspecified asthma, uncomplicated; F17.210 Nicotine dependence, cigarettes, uncomplicated; R55 Syncope and collapse; Y04.8XXA Assault by other bodily force, initial encounter; Y92.9 Unspecified place or not applicable
CPT/HCPCS: 99282

== ENCOUNTER 2018-05-05 17:11 | Emergency (ER) | payer MEDICAID, OTHER ==
[2018-05-05] MEDS ORDERED: Levofloxacin 750 MG IVPREMIX(* 750 MG/150 ML BAG IVPB ONE (18:32)
--- NOTE | 2018-05-05 18:35 | ED ---
Skin Complaint - HPI Summary HPI Summary: This patient is a 23 year old female presenting to emergency department with a chief complaint an abscess in the right antecubital fossa. She reports redness, swelling, and pain the area. She does use IV drugs last use 2 days ago. She also has another area of erythema on the right lower calf. - History of Current Complaint Chief Complaint: EDRashSkinAbscess Time Seen by Provider: 05/05/18 18:16 Stated Complaint: RT ARM SWELLING Hx Obtained From: Patient Hx Last Menstrual Period: 10 days ago Onset/Duration: Started Hours Ago, Still Present Timing: Constant Onset Severity: Severe Current Severity: Severe Pain Intensity: 7 Pain Scale Used: 0-10 Numeric Skin Location: Leg - right Character: Redness, Raised, Painful Associated Signs & Symptoms: Negative - fever - Allergy/Home Medications Allergies/Adverse Reactions: Allergies Allergy/AdvReac Type Severity Reaction Status Date / Time bee venom protein (honey bee) Allergy Swelling Verified 03/26/18 18:05 Penicillins Allergy Hives Verified 05/05/18 17:23 pollen extracts Allergy Swelling Verified 03/26/18 18:05 PMH/Surg Hx/FS Hx/Imm Hx Endocrine/Hematology History: Denies: Hx Anticoagulant Therapy, Hx Blood Disorders, Hx Blood Transfusions, Hx Bone Marrow Disease, Hx Diabetes, Hx Systemic Lupus Erythematosus, Hx Sickle Cell Disease, Hx Thyroid Disease, Hx Anemia, Hx Unexplained Bleeding, Other Endocrine/Hematological Disorders Cardiovascular History: Reports: Hx Congenital Heart Disease - vasovagal syndrome Denies: Hx Aneurysm, Hx Angina, Hx Angioplasty, Hx Auto Implanted Cardiovert Defib, Hx Cardiac Arrest, Hx Cardiomegaly, Hx Congestive Heart Failure, Hx Coronary Artery Disease, Hx Deep Vein Thrombosis, Hx Embolism, Hx Hypercholesterolemia, Hx Hypotension, Hx Hypertension, Hx Myocardial Infarction , Hx Pacemaker/ICD, Hx Peripheral Vascular Disease, Hx Rheumatic Fever, Hx Syncope, Hx Valvular Heart Disease, Other Cardiovascular Problems/Disorders Respiratory History: Reports: Hx Asthma - PRN INHALER, Hx Seasonal Allergies, Other Respiratory Problems/Disorders - RUNNY NOSE PRESENTLY Denies: Hx Chronic Bronchitis, Hx Chronic Obstructive Pulmonary Disease (COPD ), Hx Cystic Fibrosis, Hx Lung Cancer, Hx Pleural Effusion, Hx Pneumonia, Hx Pulmonary Edema, Hx Pulmonary Embolism, Hx Sleep Apnea GI History: Denies: Hx Cirrhosis, Hx Crohn's Disease, Hx Diverticulosis, Hx Gall Bladder Disease, Hx Gastroesophageal Reflux Disease, Hx Gastrointestinal Bleed, Hx Hiatal Hernia, Hx Irritable Bowel, Hx Jaundice, Hx Obstructive Bowel, Hx Ileostomy, Hx Pyloric Stenosis, Hx Ulcer, Hx Urosepsis, Other GI Disorders History: Denies: Hx Acute Renal Failure, Hx Benign Prostatic Hyperplasia, Hx Chronic Renal Failure, Hx Dialysis, Hx Kidney Infection, Hx Kidney Stones, Hx Renal Disease, Other Problems/Disorders Musculoskeletal History: Denies: Hx Arthritis, Hx Back Problems, Hx Bursitis, Hx Congenital Bone Abnormalities, Hx Fibromyalgia, Hx Gout, Hx Orthopedic Injury, Hx Osteoporosis, Hx Scoliosis, Hx Tendonitis, Other Musculoskeletal History Sensory History: Denies: Hx Cataracts, Hx Contacts or Glasses, Hx Eye Injury, Hx Eye Prosthesis, Hx Glaucoma, Hx Legally Blind, Hx Macular Degeneration, Hx Vision Problem, Hx Deafness, Hx Hearing Aid, Hx Hearing Problem, Other Sensory Impairments Opthamlomology History: Denies: Hx Cataracts, Hx Contacts or Glasses, Hx Eye Injury, Hx Eye Prosthesis, Hx Glaucoma, Hx Legally Blind, Hx Macular Degeneration, Hx Vision Problem, Other Sensory Impairments Neurological History: Reports: Hx Headaches, Hx Migraine, Other Neuro Impairments/Disorders - BIPOLAR DISORDER Denies: Hx Dementia, Hx Developmental Delay, Hx Nerve Disease, Hx Seizures, Hx Spinal Cord Injury, Hx Transient Ischemic Attacks (TIA) Psychiatric History: Reports: Hx Anxiety, Hx Attention Deficit Hyperactivity Disorder - possible dx?, Hx Depression - CONTROL WITH MEDS, Hx Panic Disorder, Hx Post Traumatic Stress Disorder, Hx Inpatient Treatment, Hx Community Mental [facility] Tx - SELF, Hx Bipolar Disorder, Hx Suicide Attempt, Hx Substance Abuse, Other Psychiatric Issues/Disorders Denies: Hx Eating Disorder, Hx Schizophrenia, Hx of Violent Episodes Against Others - Cancer History Hx Chemotherapy: No Hx Radiation Therapy: No Hx Palliative Cancer Treatment: No - Surgical History Surgery Procedure, Year, and Place: 2002 BILATERAL MYRINGOTOMY WITH TUBE INSERTION, [facility]. MULTIPLE MYRINGOTOMY WITH TUBE INSERTIONS, (LAST ONE 02/2014), [place]. HERNIA REPAIR LOWER ABDOMEN X 2, AGE 3 AND 4 Hx Anesthesia Reactions: Yes - WOKE DURING SURGERY IN 2013 Infectious Disease History: Yes Infectious Disease History: Denies: Hx Clostridium Difficile, Hx Hepatitis, Hx Human Immunodeficiency Virus (HIV), Hx of Known/Suspected MRSA, Hx Shingles, Hx Tuberculosis, Hx Known/ Suspected VRE, Hx Known/Suspected VRSA, History Other Infectious Disease, Traveled Outside the [place] in Last 30 Days - Family History Known Family History: Positive: Cardiac Disease, Diabetes Negative: Hypertension - Social History Alcohol Use: None Alcohol Amount: pt reports 10 drinks per day [id number] Substance Use Type: Reports: Cocaine Substance Use Comment - Amount & Last Used: meth last sunday Smoking Status (MU): Light Every Day Tobacco Smoker Type: Cigarettes Amount Used/How Often: 4 cigs/day Have You Smoked in the Last Year: Yes Review of Systems Negative: Fever Positive: Other - redness, swelling, and pain All Other Systems Reviewed And Are Negative: Yes Physical Exam - Summary Physical Exam Summary: Appearance: Well appearing, no pain distress Skin: right arm is swollen and tender, swelling rt forearm 8cm/8cm Head/face: normal Eyes: EOMI, VIKAS ENT: normal Neck: supple, non-tender Respiratory: CTA, breath sounds present Cardiovascular: RRR, pulses symmetrical Abdomen: non-tender, soft Musculoskeletal: normal, strength/ROM intact Neuro: normal, sensory motor intact, A&Ox3 Triage Information Reviewed: Yes Vital Signs On Initial Exam: Initial Vitals Temp Pulse Resp BP Pulse Ox 97.8 F 118 18 130/105 99 05/05/18 17:20 05/05/18 17:20 05/05/18 17:20 05/05/18 17:20 05/05/18 17:20 Vital Signs Reviewed: Yes Procedures - Incision and Drainage 1 Site: rite medial forearm Anesthesia: Local, Lidocaine Instrument(s): Needle - negative aspiration of purulent fluid Diagnostics - Vital Signs Vital Signs Temp Pulse Resp BP Pulse Ox 05/05/18 17:20 97.8 F 118 18 130/105 99 - Laboratory Lab Statement: Any lab studies that have been ordered have been reviewed, and results considered in the medical decision making process. - Ultrasound No standard instances Ultrasound Interpretation Completed By: Radiologist Summary of Ultrasound Findings: US Soft tissue reveals per radiologist, Subcutaneous edema of the right forearm with some relatively localized. interstitial fluid measuring approximately 12 x 7 x 7 mm. A definite abscess. with mature wall is not seen. ED physician has reviewed this report. Re-Evaluation - Re-Evaluation First Eval Re-Evaluation Time: 19:42 Comment: The patient is refusing IV access as well as all medical care at the time. I advised her to consider admission but she repeated declines. I gave her return instructions and she will leave AMA. Course/Dx - Course Assessment/Plan: This patient is a 23 year old female presenting to emergency department with a chief complaint an abscess in the right antecubital fossa. She reports redness, swelling, and pain the area. She does use IV drugs last use 2 days ago. She also has another area of erythema on the right lower calf. US Soft tissue reveals per radiologist, Subcutaneous edema of the right forearm with some relatively localized. interstitial fluid measuring approximately 12 x 7 x 7 mm. A definite abscess. with mature wall is not seen. ED physician has reviewed this report. The patient is refusing IV access as well as all medical care at the time. I advised her to consider admission but she repeated declines. I gave her return instructions and she will leave AMA. - Differential Diagnoses - Skin Complaint Differential Diagnoses: Cellulitis, Other - ivdu - Diagnoses Provider Diagnoses: IVDU (intravenous drug user), Cellulitis, Abscess Discharge - Sign-Out/Discharge Documenting (check all that apply): Patient Departure - AMA - Discharge Plan Condition: Guarded Disposition: AGAINST MEDICAL ADVICE Prescriptions: Sulfamethox/Trimethoprim DS* [Bactrim DS 800/160 TAB*] 1 tab PO BID #20 tab Patient Education Materials: Cellulitis (DC), Warm Compress or Soak (ED) Referrals: No Primary Care Phys,NOPCP [Primary Care Provider] - Additional Instructions: Follow up with your primary care physician in 1-3 days. RETURN TO THE EMERGENCY DEPARTMENT FOR CHANGING OR WORSENING SYMPTOMS. - Billing Disposition and Condition Condition: GUARDED Disposition: Against Medical Advice - Attestation Statements Document Initiated by Cecilia: Yes Documenting Scribe: Trey Pereira Provider For Whom Cecilia is Documenting (Include Credential): Fory Edwards MD Scribe Attestation: Trey Batista , scribed for Froy Edwards MD on 05/05/18 at 2123. Scribe Documentation Reviewed: Yes Provider Attestation: The documentation as recorded by the Trey obrien accurately reflects the service I personally performed and the decisions made by me, Froy Edwards MD Status of Scribe Document: Viewed
[2018-05-05] MEDS ORDERED: Tetan/Diph/Pertus SYR(Tdap)* 0.5 ML SYR(BOOSTRIX) use SYR IM ONE (19:43)
[2018-05-05] MEDS ORDERED: Sulfamethox/Trimethoprim DS 800/160* TAB PO ONE (19:43)
[2018-05-05 20:00] VITALS: BP 136/92
== END 2018-05-05 19:59 | disposition left against medical advice (07) ==
LOC: ED 17:11
DX: F19.90 Other psychoactive substance use, unspecified, uncomplicated (principal); L03.113 Cellulitis of right upper limb; Z88.0 Allergy status to penicillin; F17.210 Nicotine dependence, cigarettes, uncomplicated
CPT/HCPCS: 90471; 90715; 96374; 99282; A9270-GY

== ENCOUNTER 2018-11-01 14:29 | Emergency (ER) | payer OTHER ==
--- NOTE | 2018-11-01 15:27 | ED ---
Complex/Multi-Sys Presentation - HPI Summary HPI Summary: The patient is a 23 y/o F presenting to [facility] with a chief complaint of sudden onset lethargy and decreased appetite and oral intake for 4-5 days. She reports that over the last few days she has been sleeping much more than usual, and she has been unable to eat or drink as she has no appetite. She states that she's had intermittent fevers with the most recent one last night accompanied by chills and diaphoresis, and the last one prior to that was three days ago. She additionally c/o back pain, a lump in the left temporal area, and an episode of syncope a few days ago. She denies edema in either lower extremity. She reports IV methamphetamine use, last taken about a week and a half ago; she injects in the hand. She has hx of hepatitis C secondary to sharing needles. Hx of vasovagal syndrome, asthma, headache/migraines, anxiety, ADHD, depression, panic disorder, PTSD, bipolar disorder, suicide attempt, substance abuse, inpatient treatment. FHx of cardiac disease, DM. Light every day smoker, daily EtOH, marijuana and IV drug use. - History Of Current Complaint Chief Complaint: EDGeneral Time Seen by Provider: 11/01/18 14:49 Hx Obtained From: Patient Onset/Duration: Gradual Onset, Lasting Days - 4-5, Still Present Timing: Days Severity Currently: Mild Severity Initially: Moderate Aggravating Factor(s): none Alleviating Factor(s): none Associated Signs And Symptoms: Positive: Syncope - one episode a few days ago, Back Pain, Decreased Oral Intake - and decreased appetite, Other - fever, chills , diaphoresis, lethargy, lump on left temporal area. Negative: Edema - Allergies/Home Medications Allergies/Adverse Reactions: Allergies Allergy/AdvReac Type Severity Reaction Status Date / Time bee venom protein (honey bee) Allergy Swelling Verified 03/26/18 18:05 Penicillins Allergy Hives Verified 05/05/18 17:23 pollen extracts Allergy Swelling Verified 03/26/18 18:05 Home Medications: Home Medications Aripiprazole Maintena (NF) [Abilify Maintena (NF)] 400 mg IM Q28D 11/01/18 [ History Confirmed 11/01/18] Dextroamphetamine/Amphetamine [Adderall Xr 20 mg Capsule] 20 mg PO DAILY [History Confirmed 11/01/18] PMH/Surg Hx/FS Hx/Imm Hx Endocrine/Hematology History: Denies: Hx Anticoagulant Therapy, Hx Blood Disorders, Hx Blood Transfusions, Hx Bone Marrow Disease, Hx Diabetes, Hx Systemic Lupus Erythematosus, Hx Sickle Cell Disease, Hx Thyroid Disease, Hx Anemia, Hx Unexplained Bleeding, Other Endocrine/Hematological Disorders Cardiovascular History: Reports: Hx Congenital Heart Disease - vasovagal syndrome Denies: Hx Aneurysm, Hx Angina, Hx Angioplasty, Hx Auto Implanted Cardiovert Defib, Hx Cardiac Arrest, Hx Cardiomegaly, Hx Congestive Heart Failure, Hx Coronary Artery Disease, Hx Deep Vein Thrombosis, Hx Embolism, Hx Hypercholesterolemia, Hx Hypotension, Hx Hypertension, Hx Myocardial Infarction , Hx Pacemaker/ICD, Hx Peripheral Vascular Disease, Hx Rheumatic Fever, Hx Syncope, Hx Valvular Heart Disease, Other Cardiovascular Problems/Disorders Respiratory History: Reports: Hx Asthma - PRN INHALER, Hx Seasonal Allergies Denies: Hx Chronic Bronchitis, Hx Chronic Obstructive Pulmonary Disease (COPD ), Hx Cystic Fibrosis, Hx Lung Cancer, Hx Pleural Effusion, Hx Pneumonia, Hx Pulmonary Edema, Hx Pulmonary Embolism, Hx Sleep Apnea GI History: Denies: Hx Cirrhosis, Hx Crohn's Disease, Hx Diverticulosis, Hx Gall Bladder Disease, Hx Gastroesophageal Reflux Disease, Hx Gastrointestinal Bleed, Hx Hiatal Hernia, Hx Irritable Bowel, Hx Jaundice, Hx Obstructive Bowel, Hx Ileostomy, Hx Pyloric Stenosis, Hx Ulcer, Hx Urosepsis, Other GI Disorders History: Denies: Hx Acute Renal Failure, Hx Benign Prostatic Hyperplasia, Hx Chronic Renal Failure, Hx Dialysis, Hx Kidney Infection, Hx Kidney Stones, Hx Renal Disease, Other Problems/Disorders Musculoskeletal History: Denies: Hx Arthritis, Hx Back Problems, Hx Bursitis, Hx Congenital Bone Abnormalities, Hx Fibromyalgia, Hx Gout, Hx Orthopedic Injury, Hx Osteoporosis, Hx Scoliosis, Hx Tendonitis, Other Musculoskeletal History Sensory History: Denies: Hx Cataracts, Hx Contacts or Glasses, Hx Eye Injury, Hx Eye Prosthesis, Hx Glaucoma, Hx Legally Blind, Hx Macular Degeneration, Hx Vision Problem, Hx Deafness, Hx Hearing Aid, Hx Hearing Problem, Other Sensory Impairments Opthamlomology History: Denies: Hx Cataracts, Hx Contacts or Glasses, Hx Eye Injury, Hx Eye Prosthesis, Hx Glaucoma, Hx Legally Blind, Hx Macular Degeneration, Hx Vision Problem, Other Sensory Impairments Neurological History: Reports: Hx Headaches, Hx Migraine Denies: Hx Dementia, Hx Developmental Delay, Hx Nerve Disease, Hx Seizures, Hx Spinal Cord Injury, Hx Transient Ischemic Attacks (TIA) Psychiatric History: Reports: Hx Anxiety, Hx Attention Deficit Hyperactivity Disorder - possible dx?, Hx Depression - CONTROL WITH MEDS, Hx Panic Disorder, Hx Post Traumatic Stress Disorder, Hx Inpatient Treatment, Hx Community Mental Health Tx - SELF, Hx Bipolar Disorder, Hx Suicide Attempt, Hx Substance Abuse, Other Psychiatric Issues/Disorders Denies: Hx Eating Disorder, Hx Schizophrenia, Hx of Violent Episodes Against Others - Cancer History Hx Chemotherapy: No Hx Radiation Therapy: No Hx Palliative Cancer Treatment: No - Surgical History Surgery Procedure, Year, and Place: 2002 BILATERAL MYRINGOTOMY WITH TUBE INSERTION, [place]. MULTIPLE MYRINGOTOMY WITH TUBE INSERTIONS, (LAST ONE 02/2014), [place]. HERNIA REPAIR LOWER ABDOMEN X 2, AGE 3 AND 4 Hx Anesthesia Reactions: Yes - WOKE DURING SURGERY IN 2013 Infectious Disease History: Yes Infectious Disease History: Denies: Hx Clostridium Difficile, Hx Hepatitis, Hx Human Immunodeficiency Virus (HIV), Hx of Known/Suspected MRSA, Hx Shingles, Hx Tuberculosis, Hx Known/ Suspected VRE, Hx Known/Suspected VRSA, History Other Infectious Disease, Traveled Outside the [place] in Last 30 Days - Family History Known Family History: Positive: Cardiac Disease, Diabetes Negative: Hypertension - Social History Alcohol Use: Daily Alcohol Amount: pt reports 10 drinks per day [id number] Hx Substance Use: Yes Substance Use Type: Reports: Marijuana Substance Use Comment - Amount & Last Used: weekly Hx Tobacco Use: Yes Smoking Status (MU): Light Every Day Tobacco Smoker Type: Cigarettes Amount Used/How Often: 4 cigs/day Have You Smoked in the Last Year: Yes Review of Systems Positive: Fever - intermittent with most recent last night, Chills, Skin Diaphoresis, Other - lethargic Positive: Other - decreased appetite and oral intake Positive: Other - diffuse back pain. Negative: Edema - in either lower extremity Positive: Syncope - one episode a few days ago All Other Systems Reviewed And Are Negative: Yes Physical Exam - Summary Physical Exam Summary: Appearance: Well appearing, no pain distress Skin: warm, dry, reflects adequate perfusion Head/face: swelling and erythema over the left temporal area Eyes: EOMI, VIKAS ENT: normal Neck: supple, non-tender Respiratory: CTA, breath sounds present Cardiovascular: RRR, pulses symmetrical Abdomen: non-tender, soft Musculoskeletal: normal, strength/ROM intact Neuro: normal, sensory motor intact, A&Ox3 Triage Information Reviewed: Yes Vital Signs On Initial Exam: Initial Vitals Temp Pulse Resp BP Pulse Ox 97.3 F 111 18 118/91 98 11/01/18 14:30 11/01/18 14:30 11/01/18 14:30 11/01/18 14:30 11/01/18 14:30 Vital Signs Reviewed: Yes Diagnostics - Vital Signs Vital Signs Temp Pulse Resp BP Pulse Ox 11/01/18 14:30 97.3 F 111 18 118/91 98 - Laboratory Result Diagrams: 11/01/18 15:52 11/01/18 15:52 Lab Statement: Any lab studies that have been ordered have been reviewed, and results considered in the medical decision making process. - Radiology CXR Radiology Interpretation Completed By: Radiologist Summary of Radiographic Findings: No evidence for active cardiopulmonary disease. ED physician has reviewed this report. Re-Evaluation - Re-Evaluation First Eval Re-Evaluation Time: 17:25 Comment: I spoke with patient concerning discharge home. Complex Multi-Symp Course/Dx Course Of Treatment: The patient is a 23 y/o F presenting to [facility] with a chief complaint of sudden onset lethargy and decreased appetite and oral intake for 4- 5 days accompanied by a lump in the left temporal area, back pain, an episode of syncope, and intermittent fevers, chills, and diaphoresis. Denies edema. 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 Hx of vasovagal syndrome, asthma, headache/migraines, anxiety, ADHD, depression, panic disorder, PTSD, bipolar disorder, suicide attempt, substance abuse, inpatient treatment. Light every day smoker, daily EtOH, marijuana and IV drug use. Upon physical exam, the patient exhibits swelling and erythema over the left temporal area. Blood work obtained without significant abnormality. UA reveals infection. CXR impression reveals no evidence for active cardiopulmonary disease. She is diagnosed with UTI, folliculitis of scalp, and history of substance abuse. She agrees with plan for discharge. She is prescribed Bactrim to treat UTI and folliculitis. - Diagnoses Differential Diagnoses/HQI/PQRI: Urinary Tract Infection, Other - folliculitis scalp Provider Diagnoses: Folliculitis, History of substance abuse, UTI (urinary tract infection) Discharge - Sign-Out/Discharge Documenting (check all that apply): Patient Departure - Patient will be discharged home. Patient Received Moderate/Deep Sedation with Procedure: No - Discharge Plan Condition: Stable Disposition: HOME Prescriptions: Sulfamethox/Trimethoprim DS* [Bactrim DS 800/160 TAB*] 1 tab PO BID #20 tab Patient Education Materials: Urinary Tract Infection in Women (DC), Folliculitis (ED), Methamphetamine Abuse (ED) Referrals: [facility] [Outside] - 3 Days Additional Instructions: Please take medication as prescribed. Follow up with your primary care provider in 2-3 days. RETURN TO THE EMERGENCY DEPARTMENT FOR ANY NEW OR WORSENING SYMPTOMS. - Billing Disposition and Condition Condition: STABLE Disposition: Home - Attestation Statements Document Initiated by Cecilia: Yes Documenting Scribe: Mari Cha Provider For Whom Cecilia is Documenting (Include Credential): Dr. Froy Edwards MD Scribe Attestation: Mari Batista scribed for Dr. Froy Edwards MD on 11/01/18 at 1907. Scribe Documentation Reviewed: Yes Provider Attestation: The documentation as recorded by the Mari obrien accurately reflects the service I personally performed and the decisions made by me, Dr. Froy Edwards MD Status of Scrgarry Document: Viewed
[2018-11-01 16:14] LABS: Hematocrit 38 % (35-47); Hemoglobin 12.8 g/dL (12.0-16.0); Mean Corpuscular HGB Conc 34 g/dL (31-36); Mean Corpuscular Hemoglobin 29 pg (27-31); Mean Corpuscular Volume 87 fL (80-97); Red Blood Count 4.39 10^6 /uL (3.70-4.87); Red Cell Distribution Width 14 % (10-15); White Blood Count 9.7 10^3/uL (3.5-10.8)
[2018-11-01 16:26] LABS: ALT 13 U/L (7-52); Albumin 4.3 g/dL (3.2-5.2); Alkaline Phosphatase 53 U/L (34-104); BUN/Creatinine Ratio 14.9 (8-20); Blood Urea Nitrogen 14 mg/dL (6-24); C Reactive Protein 3.31 mg/L (<8.01); CO2 Carbon Dioxide 23 mmol/L (22-32); Calcium 9.6 mg/dL (8.6-10.3); Chloride 105 mmol/L (101-111); Creatine Kinase 108 U/L (10-223); EGFR African American 90.1 (>60); EGFR Non-African American 74.5 (>60); Globulin 4.1 g/dL (2-4); Glucose 91 mg/dL (70-100); Sodium 135 mmol/L (135-145); Total Protein 8.4 g/dL (6.4-8.9)
[2018-11-01 16:29] LABS: HCG Pregnancy < 0.60 mIU/mL
[2018-11-01 17:00] LABS: Urine Appearance Cloudy; Urine Bacteria Absent (Absent); Urine Bilirubin Negative (Negative); Urine Blood 1+ (Negative); Urine Color Yellow; Urine Glucose Negative (Negative); Urine Ketones Negative (Negative); Urine Nitrite Negative (Negative); Urine Protein Negative (Negative); Urine Red Blood Cell 3+(>10/hpf) (Absent); Urine Specific Gravity 1.014 (1.010-1.030); Urine Squamous Epithelial Cell Present (Absent); Urine Urobilinogen Negative (Negative); Urine White Blood Cell 3+(>20/hpf) (Absent)
[2018-11-01 17:14] LABS: ABS Eosinophils 0.1 10^3/ul (0-0.6); ABS Lymphocytes 1.6 10^3/ul (1.0-4.8); ABS Monocytes 0.6 10^3/ul (0-0.8); ABS Neutrophils 7.4 10^3/ul (1.5-7.7); Eosinophil % 0.7 %; Lymphocyte % 16.8 %; Mean Platelet Volume 7.6 fL (7.4-10.4); Nucleated Red Blood Cells % 0.1; Platelet Count 147 10^3/uL (150-450)
[2018-11-01 17:16] LABS: Anion Gap 7 mmol/L (2-11)
[2018-11-01 17:37] VITALS: BP 0/0
== END 2018-11-01 17:26 | disposition home or self-care (01) ==
LOC: ED 14:29
DX: L73.9 Follicular disorder, unspecified (principal); N39.0 Urinary tract infection, site not specified; F15.10 Other stimulant abuse, uncomplicated; Z72.89 Other problems related to lifestyle; F17.210 Nicotine dependence, cigarettes, uncomplicated; M54.9 Dorsalgia, unspecified; R22.0 Localized swelling, mass and lump, head; Q24.9 Congenital malformation of heart, unspecified; J45.909 Unspecified asthma, uncomplicated; F90.9 Attention-deficit hyperactivity disorder, unspecified type; F41.9 Anxiety disorder, unspecified; F32.9 Major depressive disorder, single episode, unspecified; Z86.19 Personal history of other infectious and parasitic diseases; Z88.0 Allergy status to penicillin; Z91.030 Bee allergy status; Z82.49 Family history of ischemic heart disease and other diseases of the circulatory system; Z83.3 Family history of diabetes mellitus
CPT/HCPCS: 36415; 71046; 80053; 81003; 81015; 82550; 83605; 84702; 85025; 86140; 87040; 87086; 99282

== ENCOUNTER 2018-12-28 15:04 | Emergency (ER) | payer OTHER ==
[2018-12-28] MEDS ORDERED: NS 0.9% 1000 ML** 1,000 ML IV ONE (15:07)
[2018-12-28] MEDS ORDERED: Ondansetron ODT TAB* 4 MG SL PRN (15:09)
--- NOTE | 2018-12-28 15:11 | ED ---
Substance Abuse/Use - HPI Summary HPI Summary: 23 year old F brought in by EMS to [facility] complains of overdose after injecting IV meth minutes ago. Per EMS, patient was unresponsive when EMS arrived to the scene. Per EMS, patient was given Narcan 6 mg nasally and Ambu bag resuscitation , after which her respiration improved from an initial 85. Patient states she doesn't think that she used narcotics. Symptoms aggravated by nothing. Symptoms alleviated by Narcan 6 mg and Ambu bag resuscitation. PMHX: Hx ADHD for which she takes Adderall, Hx asthma. FHx: Diabetes, cardiac disease. Surgical hx: bilateral ear tubes. Patient states she smokes cigarettes, drinks alcohol, and does not use heroin. - History Of Current Complaint Stated Complaint: "OVERDOSE PER EMS" Hx Obtained From: Patient, EMS Aggravating Factor(s): Nothing Alleviating Factor(s): Other - Narcan x6 - Allergies/Home Medications Allergies/Adverse Reactions: Allergies Allergy/AdvReac Type Severity Reaction Status Date / Time bee venom protein (honey bee) Allergy Swelling Verified 03/26/18 18:05 Penicillins Allergy Hives Verified 05/05/18 17:23 pollen extracts Allergy Swelling Verified 03/26/18 18:05 PMH/Surg Hx/FS Hx/Imm Hx Endocrine/Hematology History: Denies: Hx Anticoagulant Therapy, Hx Blood Disorders, Hx Blood Transfusions, Hx Bone Marrow Disease, Hx Diabetes, Hx Systemic Lupus Erythematosus, Hx Sickle Cell Disease, Hx Thyroid Disease, Hx Anemia, Hx Unexplained Bleeding, Other Endocrine/Hematological Disorders Cardiovascular History: Reports: Hx Congenital Heart Disease - vasovagal syndrome Denies: Hx Aneurysm, Hx Angina, Hx Angioplasty, Hx Auto Implanted Cardiovert Defib, Hx Cardiac Arrest, Hx Cardiomegaly, Hx Congestive Heart Failure, Hx Coronary Artery Disease, Hx Deep Vein Thrombosis, Hx Embolism, Hx Hypercholesterolemia, Hx Hypotension, Hx Hypertension, Hx Myocardial Infarction , Hx Pacemaker/ICD, Hx Peripheral Vascular Disease, Hx Rheumatic Fever, Hx Syncope, Hx Valvular Heart Disease, Other Cardiovascular Problems/Disorders Respiratory History: Reports: Hx Asthma - PRN INHALER, Hx Seasonal Allergies, Other Respiratory Problems/Disorders - RUNNY NOSE PRESENTLY Denies: Hx Chronic Bronchitis, Hx Chronic Obstructive Pulmonary Disease (COPD ), Hx Cystic Fibrosis, Hx Lung Cancer, Hx Pleural Effusion, Hx Pneumonia, Hx Pulmonary Edema, Hx Pulmonary Embolism, Hx Sleep Apnea GI History: Denies: Hx Cirrhosis, Hx Crohn's Disease, Hx Diverticulosis, Hx Gall Bladder Disease, Hx Gastroesophageal Reflux Disease, Hx Gastrointestinal Bleed, Hx Hiatal Hernia, Hx Irritable Bowel, Hx Jaundice, Hx Obstructive Bowel, Hx Ileostomy, Hx Pyloric Stenosis, Hx Ulcer, Hx Urosepsis, Other GI Disorders History: Denies: Hx Acute Renal Failure, Hx Benign Prostatic Hyperplasia, Hx Chronic Renal Failure, Hx Dialysis, Hx Kidney Infection, Hx Kidney Stones, Hx Renal Disease, Other Problems/Disorders Musculoskeletal History: Denies: Hx Arthritis, Hx Back Problems, Hx Bursitis, Hx Congenital Bone Abnormalities, Hx Fibromyalgia, Hx Gout, Hx Orthopedic Injury, Hx Osteoporosis, Hx Scoliosis, Hx Tendonitis, Other Musculoskeletal History Sensory History: Denies: Hx Cataracts, Hx Contacts or Glasses, Hx Eye Injury, Hx Eye Prosthesis, Hx Glaucoma, Hx Legally Blind, Hx Macular Degeneration, Hx Vision Problem, Hx Deafness, Hx Hearing Aid, Hx Hearing Problem, Other Sensory Impairments Opthamlomology History: Denies: Hx Cataracts, Hx Contacts or Glasses, Hx Eye Injury, Hx Eye Prosthesis, Hx Glaucoma, Hx Legally Blind, Hx Macular Degeneration, Hx Vision Problem, Other Sensory Impairments Neurological History: Reports: Hx Headaches, Hx Migraine, Other Neuro Impairments/Disorders - BIPOLAR DISORDER Denies: Hx Dementia, Hx Developmental Delay, Hx Nerve Disease, Hx Seizures, Hx Spinal Cord Injury, Hx Transient Ischemic Attacks (TIA) Psychiatric History: Reports: Hx Anxiety, Hx Attention Deficit Hyperactivity Disorder - possible dx?, Hx Depression - CONTROL WITH MEDS, Hx Panic Disorder, Hx Post Traumatic Stress Disorder, Hx Inpatient Treatment, Hx Community Mental Health Tx - SELF, Hx Bipolar Disorder, Hx Suicide Attempt, Hx Substance Abuse, Other Psychiatric Issues/Disorders Denies: Hx Eating Disorder, Hx Schizophrenia, Hx of Violent Episodes Against Others - Cancer History Hx Chemotherapy: No Hx Radiation Therapy: No Hx Palliative Cancer Treatment: No - Surgical History Surgery Procedure, Year, and Place: 2002 BILATERAL MYRINGOTOMY WITH TUBE INSERTION, [facility] [place]. MULTIPLE MYRINGOTOMY WITH TUBE INSERTIONS, (LAST ONE 02/2014), [place]. HERNIA REPAIR LOWER ABDOMEN X 2, AGE 3 AND 4 Hx Anesthesia Reactions: Yes - WOKE DURING SURGERY IN 2013 Infectious Disease History: Denies: Hx Clostridium Difficile, Hx Hepatitis, Hx Human Immunodeficiency Virus (HIV), Hx of Known/Suspected MRSA, Hx Shingles, Hx Tuberculosis, Hx Known/ Suspected VRE, Hx Known/Suspected VRSA, History Other Infectious Disease - Family History Known Family History: Positive: Cardiac Disease, Diabetes Negative: Hypertension - Social History Alcohol Use: Daily Alcohol Amount: pt reports 10 drinks per day [id number] Hx Substance Use: Yes Substance Use Type: Reports: Marijuana, Other - meth Substance Use Comment - Amount & Last Used: weekly Hx Tobacco Use: Yes Smoking Status (MU): Light Every Day Tobacco Smoker Type: Cigarettes Amount Used/How Often: 4 cigs/day Have You Smoked in the Last Year: Yes Review of Systems Positive: Other - meth overdose All Other Systems Reviewed And Are Negative: Yes Physical Exam - Summary Physical Exam Summary: VITAL SIGNS: Reviewed. GENERAL: Patient is a well-developed and nourished FEMALE who is lying comfortable in the stretcher. Patient is not in any acute respiratory distress. HEAD AND FACE: No signs of trauma. No ecchymosis, hematomas or skull depressions. No sinus tenderness. EYES: PERRLA, EOMI x 2, No injected conjunctiva, no nystagmus. EARS: Hearing grossly intact. Ear canals and tympanic membranes are within normal limits. MOUTH: Oropharynx within normal limits. NECK: Supple, trachea is midline, no adenopathy, no JVD, no carotid bruit, no c- spine tenderness, neck with full ROM. CHEST: Symmetric, no tenderness at palpation. LUNGS: Clear to auscultation bilaterally. No wheezing or crackles. CVS: Regular rate and rhythm, S1 and S2 present, no murmurs or gallops appreciated. ABDOMEN: Soft, non-tender. No signs of distention. No rebound, no guarding, and no masses palpated. Bowel sounds are normal. EXTREMITIES: FROM in all major joints, no edema, no cyanosis or clubbing. NEURO: Alert and oriented x 3. No acute neurological deficits. Speech is normal and follows commands. SKIN: Dry and warm. Triage Information Reviewed: Yes Vital Signs Reviewed: Yes Diagnostics - Laboratory Result Diagrams: 12/28/18 15:37 12/28/18 15:37 Lab Statement: Any lab studies that have been ordered have been reviewed, and results considered in the medical decision making process. - EKG 1509 Cardiac Rate: NL - 85 BPM EKG Rhythm: Sinus Rhythm Summary of EKG Findings: Sinus rhythm at [address] elevations. Inverted T waves in B2. Normal axis Re-Evaluation - Re-Evaluation First Eval Re-Evaluation Time: 17:20 Comment: patient is alert and oriented x2. patient wants to go home. she will be discharged home Course/Dx - Course Assessment/Plan: Patient was given Narcan by EMS and the patient is now alert and oriented 3 in the ED. Blood work without any significant abnormalities except for glucose of 103. The patient was observed for a couple hours in the ED. The patient is no longer symptomatic. The patient is sober, she is alert and oriented 3 and has no other complaints. The patient is eating and drinking without any nausea/vomiting. The patient is ambulating with good steady walk. Therefore, the patient will be discharged home with follow-up with PCP. I discussed all the findings and test results with the patient. Patient was instructed to return to the emergency room immediately if any of the symptoms return or worsen. Plan of care was discussed with the patient and she understands and agrees. All questions were answered to patient satisfaction. There were no further complaints or concerns. Lung exam before discharge: CTA B/L. Good air exchange. No wheezing or crackles heard. CVS: S1 and S2 present. No murmurs appreciated. Patient is alert and oriented x 3. Patient is hemodynamically stable. Patient will be discharged home with follow up [facility] in the next 2-3 days. - Diagnoses Provider Diagnoses: Substance abuse, Overdose Discharge ED - Sign-Out/Discharge Documenting (check all that apply): Patient Departure - Discharge Patient Received Moderate/Deep Sedation with Procedure: No - Discharge Plan Condition: Stable Disposition: HOME Patient Education Materials: Polysubstance Abuse (ED), Adult Overdose (ED) Referrals: [facility] [Outside] - 3 Days Additional Instructions: Follow up with [facility] in 3 days. Return to the Emergency Department for new or worsening symptoms. - Billing Disposition and Condition Condition: STABLE Disposition: Home - Attestation Statements Document Initiated by Scribe: Yes Documenting Scribe: Elis Bravo Provider For Whom Scribe is Documenting (Include Credential): Vin Fregoso MD Scribe Attestation: Elis Batista, scribed for Vin Fregoso MD on 12/28/18 at 1849. Scribe Documentation Reviewed: Yes Provider Attestation: The documentation as recorded by the scribe, Elis Bravo accurately reflects the service I personally performed and the decisions made by me, Vin Fregoso MD Status of Cecilia Document: Viewed
[2018-12-28 15:53] LABS: ABS Eosinophils 0.1 10^3/ul (0-0.6); ABS Lymphocytes 2.2 10^3/ul (1.0-4.8); ABS Monocytes 0.6 10^3/ul (0-0.8); ABS Neutrophils 3.4 10^3/ul (1.5-7.7); Eosinophil % 1.3 %; Hematocrit 36 % (35-47); Hemoglobin 11.9 g/dL (12.0-16.0); Lymphocyte % 34.5 %; Mean Corpuscular HGB Conc 33 g/dL (31-36); Mean Corpuscular Hemoglobin 28 pg (27-31); Mean Corpuscular Volume 85 fL (80-97); Mean Platelet Volume 7.1 fL (7.4-10.4); Platelet Count 322 10^3/uL (150-450); Red Blood Count 4.23 10^6 /uL (3.70-4.87); Red Cell Distribution Width 14 % (10-15); White Blood Count 6.3 10^3/uL (3.5-10.8)
[2018-12-28 16:04] LABS: ALT 12 U/L (7-52); AST 17 U/L (13-39); Albumin 3.8 g/dL (3.2-5.2); Albumin/Globulin Ratio 1.1 (1-3); Alkaline Phosphatase 44 U/L (34-104); Anion Gap 4 mmol/L (2-11); BUN/Creatinine Ratio 10.3 (8-20); Blood Urea Nitrogen 9 mg/dL (6-24); CO2 Carbon Dioxide 27 mmol/L (22-32); Calcium 8.7 mg/dL (8.6-10.3); Chloride 107 mmol/L (101-111); Creatine Kinase 97 U/L (10-223); EGFR African American 98.5 (>60); EGFR Non-African American 81.4 (>60); Globulin 3.6 g/dL (2-4); Glucose 103 mg/dL (70-100); Potassium 3.9 mmol/L (3.5-5.0); Sodium 138 mmol/L (135-145); Total Protein 7.4 g/dL (6.4-8.9)
[2018-12-28 16:20] LABS: Acetaminophen < 15 mcg/mL; Alcohol < 10 mg/dL (<10); Salicylate < 2.50 mg/dL (<30)
[2018-12-28 17:35] VITALS: BP 120/81
== END 2018-12-28 17:36 | disposition home or self-care (01) ==
LOC: ED 15:04
DX: T43.621A Poisoning by amphetamines, accidental (unintentional), initial encounter (principal); F19.10 Other psychoactive substance abuse, uncomplicated; Y92.9 Unspecified place or not applicable; F41.9 Anxiety disorder, unspecified; F43.10 Post-traumatic stress disorder, unspecified; F17.210 Nicotine dependence, cigarettes, uncomplicated; Z79.899 Other long term (current) drug therapy
CPT/HCPCS: 36415; 80053; 80320; 80329; 82550; 83605; 85025; 93005; 99282; G0480

== ENCOUNTER 2019-03-22 18:29 | Emergency (ER) | payer OTHER ==
--- OUTSIDE RECORDS SUMMARY | 2019-03-22 18:35 | XMS REPORT | Continuity of Care Document ---
:1995 External Reference #:[id number] Author Name Javier Garcia MD Address [address] [place] [address] Problems Active Problems Provider Date Non-suppurative otitis media Javier Garcia MD Onset: 05/27/2015 Perforation of tympanic membrane Javier Garcia MD Onset: 05/27/2015 Conductive hearing loss, bilateral Javier Garcia MD Onset: 05/27/2015 Other specified disorders of Eustachian tube, Javier Garcia MD Onset: 09/12 bilateral Otorrhea of right ear Javier Garcia MD Onset: 04/20/2016 Social History Type Date Description Comments Sex Unknown Tobacco Use Start: Unknown Light tobacco smoker (10 or fewer cigarettes/day) Tobacco Use Start: Unknown Never Smoked Cigars Tobacco Use Start: Unknown Never Smoked A Pipe Smokeless Tobacco Never Used Smokeless Tobacco ETOH Use Denies alcohol use Tobacco Use Start: Unknown Patient has never smoked Allergies, Adverse Reactions, Alerts Description No Known Drug Allergies Medications Active Medications SIG Qnty Indications Ordering Date Provider Abilifleo 1 injection q mo Unknown 300mg Tablets Methylphenidate HCL ER 1 tab daily Unknown 36mg Tablets ER 24HR Naproxen as needed Unknown 500mg Tablets Clonidine HCL 1-2 tabs nightly Unknown 0.1mg Tablets Amphetamine-Dextroamphet Take 1 Capsule By Unknown ER Mouth Every 30mg Caps ER 24HR Morning - Maximum Daily Dose Of 1 Per Day Ferrous Sulfate Take 1 Tablet By Unknown 325(65Fe) mg Mouth Every Day Tablets For 1 Week, Then Take 1 Tablet By Mouth Two Times Daily For 1 Week, Then Take 1 Tablet By Mouth Three Times History Medications Ofloxacin (Otic) applied to right 1units H92.11 Javier Garcia MD 2018 - ear twice a day 12/16/2018 0.3% Solution 3 drops Immunizations Description No Information Available Vital Signs Date Vital Result Comment 01/23/2019 9:09am Weight 158.00 lb Weight 71.669 kg Height 68 inches 5'8" Height in cm's 172.7 cm BMI (Body Mass Index) 24.0 kg/m2 12/16/2018 11:31am Weight 158.00 lb Weight 71.669 kg Height 68 inches 5'8" Height in cm's 172.7 cm BMI (Body Mass Index) 24.0 kg/m2 Results Description No Information Available Procedures Date Code Description Status 01/23/2019 17299 Binocular Microscopy Completed 12/16/2018 20916 Binocular Microscopy Completed Medical Devices Description No Information Available Encounters Type Date Location Provider Dx Diagnosis Office Visit 01/23/2019 [place],After Javier Garcia H92.11 Otorrhea, right 9:15a 04/09/07 ear 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, left ear Office Visit 12/16/2018 [place],After Javier Garcia H92.11 Otorrhea, right 11:15a 04/09/07 ear 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, left ear Office Visit 09/16/2018 [place],After Javier Garcia H72.02 Central 10:30a 04/09/07 perforation of tympanic membrane, left ear H92.11 Otorrhea, right ear M26.602 Left temporomandibular joint disorder, unspecified Assessments Date Code Description Provider 01/23/2019 H92.11 Otorrhea, right ear Javier Garcia MD 01/23/2019 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, left Javier Garcia MD ear 12/16/2018 H92.11 Otorrhea, right ear Javier Garcia MD 12/16/2018 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, left Javier Garcia MD ear 09/16/2018 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, left Javier Garcia MD ear 09/16/2018 H92.11 Otorrhea, right ear Javier Garcia MD 09/16/2018 M26.602 Left temporomandibular joint disorder, Javier Garcia MD unspecified Plan of Treatment 01/23/2019 - Javier Garcia MDH92.11 Otorrhea, right earComments:I instilled some Chloromycetin boric acid powder in the right ear for acute granuloma this usually resolves at all recheck her back in about 2 month's time, suggested using some hydrocortisone ointmentfor itchiness of her both ears. She was in advised to get some earplugs for [id number] Central perforation of tympanic membrane, left ear Functional Status Description No Information Available Mental Status Description No Information Available Referrals Description No Information Available
--- OUTSIDE RECORDS SUMMARY | 2019-03-22 18:35 | XMS REPORT | Continuity of Care Document ---
:1995 External Reference #:[id number] Author Name Javier Garcia MD Address [address] [place] [address] Problems Active Problems Provider Date Non-suppurative otitis media Javier Garcia MD Onset: 05/27/2015 Perforation of tympanic membrane Javier Garcia MD Onset: 05/27/2015 Conductive hearing loss, bilateral Javier Garcia MD Onset: 05/27/2015 Other specified disorders of Eustachian tube, Javier Garcia MD Onset: 09/12 bilateral Otorrhea of right ear Javier Garcia MD Onset: 04/20/2016 Chronic mastoiditis Javier Garcia MD Onset: 02/17/2019 Central perforation of tympanic membrane Javier Garcia MD Onset: 02/17/2019 Social History Type Date Description Comments Sex [...] Medications Active Medications SIG Qnty Indications Ordering Provider Date Cipro 1 by mouth twice a 20tabs H70.11 Javier Garcia 02/17/2019 500mg Tablets day x10 days Abilify 1 injection q mo Unknown 300mg Tablets Naproxen as needed Unknown 500mg Tablets Clonidine HCL 1-2 tabs nightly Unknown 0.1mg Tablets Amphetamine-Dextroam Take 1 Capsule By Unknown phet ER Mouth Every 30mg Caps ER Morning - Maximum 24HR Daily Dose Of 1 Per Day Ferrous Sulfate Take 1 Tablet By Unknown Mouth Every Day 325(65Fe) mg Tablets For 1 Week, Then Take 1 Tablet By Mouth Two Times Daily For 1 Week, Then Take 1 Tablet By Mouth Three Times History Medications Ofloxacin (Otic) applied to right 1units H92.11 Javier Garcia MD 2018 - ear twice a day 12/16/2018 0.3% Solution 3 drops Immunizations Description No Information Available Vital Signs Date Vital Result Comment 02/17/2019 10:33am Weight 158.00 lb Weight 71.669 kg Height 68 inches 5'8" Height in cm's 172.7 cm BMI (Body Mass Index) 24.0 kg/m2 01/23/2019 9:09am Weight 158.00 lb Weight 71.669 kg Height 68 inches 5'8" Height in cm's 172.7 cm BMI (Body Mass Index) 24.0 kg/m2 Results Description No Information Available Procedures Date Code Description Status 01/23/2019 85190 Binocular Microscopy Completed 12/16/2018 88662 Binocular Microscopy Completed Medical Devices Description No Information Available Encounters Type Date Location Provider Dx Diagnosis Office Visit 02/17/2019 [place],After Javier Garcia H92.11 Otorrhea, right 11:00a 04/09/07 ear 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, left ear H70.11 Chronic mastoiditis, right ear Office Visit 01/23/2019 [place],After Javier Garcia H92.11 Otorrhea, right 9:15a 04/09/07 ear 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, left ear Office Visit 12/16/2018 [place],After Javier Garcia H92.11 Otorrhea, right 11:15a 04/09/07 ear 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, left ear Office Visit 09/16/2018 [place],After Javier Garcia H72.02 Central 10:30a 04/09/07 perforation of tympanic membrane, left ear H92.11 Otorrhea, right ear M26.602 Left temporomandibular joint disorder, unspecified Assessments Date Code Description Provider 02/17/2019 H92.11 Otorrhea, right ear Ruparelia, Javier OSORIO 02/17/2019 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, left Radha, Javier OSORIO ear 02/17/2019 H70.11 Chronic mastoiditis, right ear Jaimeparelia, Javier OSORIO 01/23/2019 H92.11 Otorrhea, right ear Ruparelia, Javier OSORIO 01/23/2019 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, left Radha, Javier OSORIO ear 12/16/2018 H92.11 Otorrhea, right ear Ruparelia, Javier OSORIO 12/16/2018 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, left Ruparelia, Javier OSORIO ear 09/16/2018 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, left Jaimeparelia, Javier OSORIO ear 09/16/2018 H92.11 Otorrhea, right ear Ruparelia, Javier OSORIO 09/16/2018 M26.602 Left temporomandibular joint disorder, Javier Garcia MD unspecified Plan of Treatment 02/17/2019 - Ruparelia, Javier OSORIOH92.11 Otorrhea, right ear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, left earH70.11 Chronic mastoiditis, right earNew Medication:Cipro 500 mg - 1 by mouth twice a day x10 daysComments: Patient with chronic otorrhea with not improving. I suggest a CT of the temporal bone. Possible mastoidectomy may be an indication. Start oral antibiotics until recheck Functional Status Description No Information Available Mental Status Description No Information Available Referrals Description No Information Available
--- NOTE | 2019-03-22 18:48 | UC ---
Complaint Female HPI - HPI Summary HPI Summary: period is 4 days late had sudden onset of lower abdomen pain and cramps heavy bleeding--is not using any control and could be - History Of Current Complaint Chief Complaint: UCGeneralIllness Stated Complaint: private ISSUE Time Seen by Provider: 03/22/19 18:36 Hx Obtained From: Patient ?: No - maybe Onset/Duration: Sudden Onset, Lasting Hours Timing: Constant Pain Intensity: 10 Pain Scale Used: 0-10 Numeric Character: Cramping Aggravating Factor(s): Nothing Alleviating Factor(s): Nothing - Allergies/Home Medications Allergies/Adverse Reactions: Allergies Allergy/AdvReac Type Severity Reaction Status Date / Time bee venom protein (honey bee) Allergy Swelling Verified 03/26/18 18:05 Penicillins Allergy Hives Verified 05/05/18 17:23 pollen extracts Allergy Swelling Verified 03/26/18 18:05 Home Medications: Home Medications Ciprofloxacin TAB* [Cipro 500 MG TAB*] 1 tab PO DAILY 03/22/19 [History Confirmed 03/22/19] PMH/Surg Hx/FS Hx/Imm Hx Previously Healthy: No Other History Of: Negative For: HIV, Hepatitis B, Hepatitis C, Anticoagulant Therapy - Surgical History Surgical History: Yes Surgery Procedure, Year, and Place: 2002 BIL[place] [facility] [place]IPLE MYRINGOTOM[place] WITH TUBE INSERTIONS, (LAST ONE 02/2014), [place]. HERNIA REPAIR LOWER ABDOMEN X 2, AGE 3 AND 4 - Family History Known Family History: Positive: Cardiac Disease, Diabetes Negative: Hypertension - Social History Occupation: Unemployed Lives: With Family Alcohol Use: None Alcohol Amount: pt reports 10 drinks per day [id number] Substance Use Type: Marijuana, Other Substance Use Comment - Amount & Last Used: weekly Smoking Status (MU): Light Every Day Tobacco Smoker Type: Cigarettes Amount Used/How Often: 4 cigs/day Have You Smoked in the Last Year: Yes Household Exposure Type: Cigarettes - Immunization History Most Recent Influenza Vaccination: 2016 Most Recent Tetanus Shot: UTD Most Recent Pneumonia Vaccination: N/A Vaccination Up to Date: Yes Review of Systems All Other Systems Reviewed And Are Negative: Yes Constitutional: Positive: Negative Skin: Positive: Negative Eyes: Positive: Negative ENT: Positive: Negative Respiratory: Positive: Negative Cardiovascular: Positive: Negative Gastrointestinal: Positive: Abdominal Pain Genitourinary: Positive: Negative Motor: Positive: Negative Neurovascular: Positive: Negative Musculoskeletal: Positive: Negative Neurological: Positive: Negative Psychological: Positive: Negative Is Patient Immunocompromised?: No Physical Exam Triage Information Reviewed: Yes Appearance: Well-Appearing, No Pain Distress - reports 01/16 but appears in no distress, Well-Nourished Vital Signs: Initial Vital Signs Temp 100.3 F 03/22/19 18:36 Pulse 106 03/22/19 18:36 Resp 18 03/22/19 18:36 BP 132/93 03/22/19 18:36 Pulse Ox 100 03/22/19 18:36 Vital Signs Reviewed: Yes Eye Exam: Normal Eyes: Positive: Conjunctiva Clear ENT Exam: Normal ENT: Positive: Normal ENT inspection, Hearing grossly normal. Negative: Trismus , Muffled voice, Hoarse voice Dental Exam: Normal Neck exam: Normal Neck: Positive: Supple, Nontender Respiratory Exam: Normal Respiratory: Positive: Chest non-tender, Lungs clear, Normal breath sounds, No respiratory distress, No accessory muscle use Cardiovascular Exam: Normal Cardiovascular: Positive: RRR, No Murmur, Pulses Normal, Brisk Capillary Refill Abdominal Exam: Normal Abdomen Description: Positive: Nontender, No Organomegaly, Soft. Negative: CVA Tenderness (R), CVA Tenderness (L), McBurney's Point Tenderness, Peritoneal Signs Bowel Sounds: Positive: Present Pelvic Exam: Positive: External Exam Normal, Speculum Exam Normal, Bimanual Exam Normal, No Cerv. Motion Tender, Other - normal amount of menstrual flow noted- Musculoskeletal Exam: Normal Musculoskeletal: Positive: Strength Intact, ROM Intact, No Edema Neurological Exam: Normal Neurological: Positive: Alert, Muscle Tone Normal Psychological Exam: Normal Skin Exam: Normal Diagnostics - Laboratory Lab Results: orthostatics vs noted Complaint Female Dx - Course Course Of Treatment: rest increase fluids tylenol ibuprofen prn for pain try warm compress [facility] if symptoms worsen in any way - Differential Dx/Diagnosis Provider Diagnosis: Dysmenorrhea Discharge ED - Sign-Out/Discharge Documenting (check all that apply): Patient Departure All imaging exams completed and their final reports reviewed: No Studies - Discharge Plan Condition: Stable Disposition: HOME Patient Education Materials: Dysmenorrhea (ED) [facility] Additional Instructions: To ED if symptoms worsen---[facility]-- - Billing Disposition and Condition Condition: STABLE Disposition: Home - Attestation Statements Provider Attestation: Per institutional requirements, I have reviewed the chart, however, I was not consulted specifically or made aware of this patient by the midlevel provider. I did not personally evaluate, interact with , or disposition this patient.
[2019-03-22 19:25] VITALS: BP 145/89
== END 2019-03-22 19:37 | disposition home or self-care (01) ==
LOC: UCEAST 18:29
DX: N94.6 Dysmenorrhea, unspecified (principal); F17.210 Nicotine dependence, cigarettes, uncomplicated; Z88.0 Allergy status to penicillin; Z91.030 Bee allergy status; Z91.09 Other allergy status, other than to drugs and biological substances
CPT/HCPCS: 81003; 84702; 99212; G0463

== ENCOUNTER 2019-05-14 09:31 | Day surgery (SDC) | payer MEDICAID, OTHER ==
[~2019-05-14 09:31] MED LIST: Buffered Lidocaine 1% SYRIN* 1 ML/SYRINGE INTRADERM ONE; Famotidine IV* 10 MG/ML 2 ML (20 mg) IV ONE; Lactated Ringers 1000 ML Bag* 1,000 ML IV SCH
[2019-05-14] MEDS ORDERED: Famotidine IV* 10 MG/ML 2 ML (20 mg) ONE (09:52)
[2019-05-14] MEDS ORDERED: Propofol* 10 MG/ML 20 ML BTL ONE (10:09)
[2019-05-14] MEDS ORDERED: Lidocaine 2% PF * 5 ML VIAL ONE (10:09)
[2019-05-14] MEDS ORDERED: fentaNYL* 50 MCG/ML 2 ML VIAL (100 MCG VIAL) ONE ×2 (10:09→13:21)
[2019-05-14] MEDS ORDERED: Ondansetron INJ* 2 MG/ML VIAL ONE ×2 (10:09→12:23)
[2019-05-14] MEDS ORDERED: Midazolam* 1 MG/ML 5 ML VIAL (5 MG) ONE (10:09)
[2019-05-14] MEDS ORDERED: Dexamethasone IV* 4 MG/ML 1 ML (4 MG) ONE (10:09)
[2019-05-14] MEDS ORDERED: Labetalol IV* 5 MG/ML 20 ML VIAL ONE (10:21)
[2019-05-14] MEDS ORDERED: Lidocaine 2% w/ EPI 1:200,000* 20 ML SDV VIAL ONE (11:29)
[2019-05-14] MEDS ORDERED: EPINEPHRINE 1 MG/ML 1 ML VIAL ONE (11:29)
[2019-05-14] MEDS ORDERED: Ofloxacin 0.3% (Ear Drop)* 5 ml BTL ONE (11:29)
[2019-05-14] MEDS ORDERED: Bacitracin OINTMENT* 0.5% 0.5 oz TUBE ONE (11:30)
[2019-05-14] MEDS ORDERED: Gelfoam 12-7 ADSORBABL SPONGE ONE (11:30)
[2019-05-14] MEDS ORDERED: EPHEDrine (Pressors)* 50 MG/ML VIAL ONE (12:07)
[2019-05-14] MEDS ORDERED: Levalbuterol 0.63MG/3ML NEB* UNIT OF USE INH PRN (12:36)
[2019-05-14] MEDS ORDERED: Acetaminophen IV 1GM/100ML * 1,000 MG/100 ML VIAL IVPB ONE (12:36)
[2019-05-14] MEDS ORDERED: Naloxone* 0.4 MG/ML 1 ML VIAL IV PRN (12:36)
[2019-05-14] MEDS ORDERED: fentaNYL* 50 MCG/ML 2 ML VIAL (100 MCG VIAL) IV PRN (12:36)
[2019-05-14] MEDS ORDERED: Ondansetron INJ* 2 MG/ML VIAL IV PRN (12:36)
[2019-05-14] MEDS ORDERED: Acetaminophen IV 1GM/100ML * 100 ML ONE (13:13)
[2019-05-14 14:12] VITALS: BP 121/72
--- NOTE | 2019-05-15 01:40 | OP ---
DATE OF OPERATION: 05/14/19 - 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 OPERATIVE PROCEDURE: Tympanoplasty with graft. BRIEF HISTORY: This 24-year-old female has perforation, chronic otorrhea, with significant discomfort and granulation tissue and chronic myringitis. Medical management including oral antibiotics for prolonged period of time and eardrops have not helped. DESCRIPTION OF PROCEDURE: The patient was taken to operating room, general anesthesia was given and patient was intubated. The right ear was prepped and draped in the usual sterile fashion. Margins of the graft area was examined. Copious hyperplastic mucosa was removed, large granulomas were removed, cleaning out the margins of perforation. The epithelium was cleaned out around the perforation. I harvested a fascia-fat graft. This was placed with an underlay technique with the fat as an overlay. With this in place, I packed the area with Gelfoam which was soaked in ofloxacin. The graft that was taken was closed in a single layer. A cotton ball was then applied. The patient was awakened, extubated and sent to recovery room in stable condition. Instrument and sponge count were correct. Blood loss minimal. [id number]/CPS #: [id number] [facility]
== END 2019-05-14 14:15 | disposition home or self-care (01) ==
LOC: OR 09:31
PROVIDERS: ATTEND Otolaryngology
DX: H72.01 Central perforation of tympanic membrane, right ear (principal); H92.11 Otorrhea, right ear; H70.11 Chronic mastoiditis, right ear; F17.210 Nicotine dependence, cigarettes, uncomplicated; F32.9 Major depressive disorder, single episode, unspecified
CPT/HCPCS: 81025; A9270-GY; J1100; J2250; J2405; J2704; J3010

== ENCOUNTER 2021-03-06 08:51 | Inpatient (IN) ==
[2021-03-06] MEDS ORDERED: Buffered Lidocaine 1% SYRIN 1 ml INTRADERM ONE (10:30)
[2021-03-06 11:17] LABS: Urine Benzodiazepine Screen None Detected (None Detect); Urine Cannabinoids Screen Presumptive Positive (None Detect); Urine Opiates Screen None Detected (None Detect)
[2021-03-06 12:08] LABS: Rapid COVID-19 Molecular Undetected (Undetected)
[2021-03-06] MEDS ORDERED: Nalbuphine 10 MG/ML 1 ML VIAL IV ONE (13:59)
[2021-03-06] MEDS ORDERED: Promethazine INJ(RESTRICTED) 25 MG/ML 1 ml VIAL IV ONE (14:00)
[2021-03-06 14:49] LABS: ABS Lymphocytes 2.1 10^3/ul (1.0-4.8); ABS Monocytes 0.7 10^3/ul (0-0.8); Eosinophil % 0.5 %; Hematocrit 33 % (35-47); Hemoglobin 10.9 g/dL (12.0-16.0); Lymphocyte % 24.1 %; Mean Corpuscular HGB Conc 33 g/dL (31-36); Mean Corpuscular Hemoglobin 25 pg (27-31); Mean Corpuscular Volume 78 fL (80-97); Mean Platelet Volume 7.3 fL (7.4-10.4); Platelet Count 401 10^3/uL (150-450); Red Blood Count 4.31 10^6 /uL (3.70-4.87); Red Cell Distribution Width 17 % (10-15); White Blood Count 8.9 10^3/uL (3.5-10.8)
[2021-03-06] MEDS ORDERED: OBEPIDURAL 250 ML EPIDURAL ONE (17:21)
[2021-03-06] MEDS: Lactated Ringers 1000 ml BAG 1,000 ML IV ONE ×2 (17:23→18:28)
[2021-03-06] MEDS ORDERED: Sodium Citrate/Citric Acid LIQ 15 ML UDC PO PRN (18:27)
[2021-03-06] MEDS ORDERED: Phenylephrine 40 mcg/mL 10mL (400mcg) SYRINGE IV PUSH PRN ×2 (18:27)
[2021-03-06] MEDS ORDERED: Lactated Ringers 1000 ml BAG 500 ML IV PRN ×2 (18:27)
[2021-03-06] MEDS ORDERED: Lactated Ringers 1000 ml BAG 1,000 ML IV ONE (18:27)
[2021-03-06] MEDS ORDERED: Lactated Ringers 1000 ml BAG 1,000 ML IV SCH ×2 (19:00)
[2021-03-06] MEDS ORDERED: OBEPIDURAL 250 ML EPIDURAL SCH (19:00)
[2021-03-06] MEDS ORDERED: ceFAZolin 2 GM in NS PREMIX 2 GM/100 ML BAG IVPB ONE (19:10)
[2021-03-06] MEDS ORDERED: Oxytocin in LR 20 UNITS/1,000 ML BAG IVPB SCH (20:00)
[2021-03-06 20:14] LABS: Urine Appearance Clear; Urine Bilirubin Negative (Negative); Urine Blood Negative (Negative); Urine Color Yellow; Urine Glucose Negative (Negative); Urine Ketones Negative (Negative); Urine Nitrite Negative (Negative); Urine Protein Negative (Negative); Urine Specific Gravity 1.011 (1.002-1.030); Urine Urobilinogen Negative (Negative)
[2021-03-07] MEDS ORDERED: ceFAZolin VIAL 1 GM in NS 0.9% 50 ML 50 ML IVPB SCH (03:00)
[2021-03-07] MEDS ORDERED: ceFOXitin 2 GM IVPREMIX 2 GM/50 ML BAG ONE (03:50)
[2021-03-07] MEDS ORDERED: Phenylephrine 40 mcg/mL 10mL (400mcg) SYRINGE ONE (04:39)
[2021-03-07] MEDS ORDERED: Oxytocin 10 UNITS/ML 1 ML VIAL ONE (04:39)
[2021-03-07] MEDS ORDERED: Morphine PF AMP (0.5MG/ML) 5 MG/10 ML AMP ONE (04:39)
[2021-03-07] MEDS ORDERED: Ondansetron 4 mg VIAL 2 MG/ML 2 ml VIAL ONE (05:21)
[2021-03-07] MEDS ORDERED: Naloxone 0.4 mg VIAL 0.4 mg/ml 1 ml VIAL IV PRN ×2 (05:24→06:00)
[2021-03-07] MEDS ORDERED: fentaNYL 100 mcg/2 ml 50 MCG/ML VIAL IV PRN (05:24)
[2021-03-07] MEDS ORDERED: Ondansetron 4 mg VIAL 2 MG/ML 2 ml VIAL IV PRN ×2 (05:24→06:00)
[2021-03-07] MEDS ORDERED: oxyCODONE/Acetamin 5/325 mg TAB PO PRN (06:00)
[2021-03-07] MEDS ORDERED: diPHENhydraMINE IV 50 MG/ML 1 ml VIAL (BENADRYL) IV PRN (06:00)
[2021-03-07] MEDS ORDERED: Witch Hazel PAD JAR TOPICAL PRN (06:48)
[2021-03-07] MEDS ORDERED: Glycerin ADULT 2.4 gm SUPP PR PRN (06:48)
[2021-03-07] MEDS ORDERED: Oxytocin in LR 20 UNITS/1,000 ML BAG IVPB SCH (07:00)
[2021-03-07 12:44] LABS: Chlamydia trachomatis NAA Negative (Negative); Neisseria gonorrhoeae (GC) NAA Negative (Negative)
[2021-03-07] MEDS: oxyCODONE/Acetamin 5/325 mg TAB PO PRN ×2 (16:45→21:09)
[2021-03-08 09:53] LABS: ABS Eosinophils 0.1 10^3/ul (0-0.6); ABS Lymphocytes 1.9 10^3/ul (1.0-4.8); ABS Monocytes 0.7 10^3/ul (0-0.8); ABS Neutrophils 6.7 10^3/ul (1.5-7.7); Eosinophil % 1.5 %; Hematocrit 27 % (35-47); Hemoglobin 8.6 g/dL (12.0-16.0); Lymphocyte % 20.5 %; Mean Corpuscular HGB Conc 32 g/dL (31-36); Mean Corpuscular Hemoglobin 25 pg (27-31); Mean Corpuscular Volume 79 fL (80-97); Mean Platelet Volume 7.5 fL (7.4-10.4); Platelet Count 250 10^3/uL (150-450); Red Blood Count 3.42 10^6 /uL (3.70-4.87); Red Cell Distribution Width 17 % (10-15); White Blood Count 9.5 10^3/uL (3.5-10.8)
[2021-03-08 19:52] VITALS: BP 124/84
[2021-03-09] MEDS ORDERED: Nicotine GUM 2MG FRUIT FLAVOR PO PRN (10:08)
[2021-03-10] MEDS ORDERED: Scopolamine PATCH Remove NOTE PATCH OFF PRN (06:00)
== END 2021-03-09 12:42 | disposition home or self-care (01) | DRG 540 ==
LOC: MCHOB 10:10
PROVIDERS: ADMIT Advanced Practice Midwife; ATTEND Obstetrics & Gynecology

== ENCOUNTER 2021-03-22 17:31 | Inpatient (IN) ==
[2021-03-22] MEDS ORDERED: Nicotine PATCH 14 MG/24 HR PATCH TRANSDERM ONE (18:25)
[2021-03-22 19:21] LABS: Urine Appearance Cloudy; Urine Bilirubin Negative (Negative); Urine Blood 3+ (Negative); Urine Color Yellow; Urine Glucose Negative (Negative); Urine Ketones Negative (Negative); Urine Nitrite Negative (Negative); Urine Protein Negative (Negative); Urine Specific Gravity 1.008 (1.002-1.030); Urine Urobilinogen Negative (Negative)
[2021-03-22 19:32] LABS: Urine Benzodiazepine Screen None Detected (None Detect); Urine Cannabinoids Screen None Detected (None Detect); Urine Opiates Screen None Detected (None Detect)
[2021-03-22 19:33] LABS: Urine Bacteria 1+ (Absent); Urine Red Blood Cell Trace(0-2/hpf) (Absent); Urine Squamous Epithelial Cell Present (Absent); Urine White Blood Cell Trace(0-5/hpf) (Absent)
[2021-03-23 00:50] LABS: Rapid COVID-19 Molecular Undetected (Undetected)
[2021-03-23] MEDS ORDERED: Al Hydrox/Mg Hydrox/Simet LIQ 30 ML UDC PO PRN (01:46)
[2021-03-23] MEDS ORDERED: Albuterol HFA INHALER 8 gm MDI INH PRN (01:52)
[2021-03-23] MEDS ORDERED: Nicotine GUM 2MG FRUIT FLAVOR PO PRN (02:00)
[2021-03-23] MEDS ORDERED: chlorproMAZINE TAB 50 MG Q6H PRN AGITATION PO (02:00)
[2021-03-23] MEDS: Vitamin THERAPEUTIC TAB PO SCH (10:43)
[2021-03-23] MEDS: Nicotine PATCH 21 MG/24 HR PATCH TRANSDERM SCH (10:43)
[2021-03-23] MEDS: Erythromycin OPTH OINT APPLIC OINT BOTH EYES SCH ×2 (10:43→14:46)
[2021-03-24] MEDS: Vitamin THERAPEUTIC TAB PO SCH (07:31)
[2021-03-24] MEDS: Nicotine PATCH 21 MG/24 HR PATCH TRANSDERM SCH (07:31)
[2021-03-24] MEDS: Erythromycin OPTH OINT APPLIC OINT BOTH EYES SCH (08:38)
[2021-03-24 08:45] VITALS: BP 102/63
== END 2021-03-24 13:00 | disposition home or self-care (01) | DRG 755 ==
LOC: ED 17:31 → BSU 23:51
PROVIDERS: ADMIT Psychiatry & Neurology Psychiatry; ATTEND Psychiatry & Neurology Psychiatry

== ENCOUNTER 2023-01-26 05:43 | Inpatient (IN) ==
[2023-01-26] MEDS ORDERED: Sodium Citrate/Citric Acid LIQ 15 ML UDC PO ONE ×2 (06:00→06:23)
[2023-01-26] MEDS ORDERED: Lactated Ringers 1000 ml BAG 1,000 ML IV SCH ×3 (06:00→10:00)
[2023-01-26] MEDS ORDERED: Buffered Lidocaine 1% SYRIN 1 ml INTRADERM ONE ×2 (06:00→06:23)
[2023-01-26] MEDS ORDERED: Lactated Ringers 1000 ml BAG 1,000 ML IV ONE (06:23)
[2023-01-26] MEDS ORDERED: ceFOXitin 2 GM IVPREMIX 2 GM/50 ML BAG IVPB ONE (06:23)
[2023-01-26 06:38] LABS: Urine Benzodiazepine Screen None Detected (None Detect); Urine Cannabinoids Screen None Detected (None Detect); Urine Opiates Screen None Detected (None Detect)
[2023-01-26] MEDS ORDERED: Oxytocin 10 UNITS/ML 1 ML VIAL ONE ×2 (07:22→09:45)
[2023-01-26] MEDS ORDERED: Dexamethasone IV 4 MG/ML VIAL 1 ml VIAL ONE (07:22)
[2023-01-26] MEDS ORDERED: Ondansetron 4 mg VIAL 2 MG/ML 2 ml VIAL ONE (07:22)
[2023-01-26 07:44] LABS: ABS Eosinophils 0.1 10^3/uL (0.0-0.5); ABS Lymphocytes 2.3 10^3/uL (1.0-4.8); ABS Monocytes 0.7 10^3/uL (0.0-0.9); ABS Neutrophils 5.8 10^3/uL (1.5-7.6); ABS Nucleated RBC 0.01 10^3/ul; Eosinophil % 0.6 %; Hematocrit 30.4 % (35-45); Hemoglobin 10.3 g/dL (11.5-14.3); Lymphocyte % 25.6 %; Mean Corpuscular Hemoglobin 27.4 pg (27-33); Mean Corpuscular Hgb Conc 33.9 g/dL (31-36); Mean Corpuscular Volume 80.7 fL (80-97); Mean Platelet Volume 7.5 fL (7.5-11.2); Nucleated Red Blood Cells % 0.1 %/100WBC (0.0-0.8); Platelet Count 262 10^3/uL (150-450); Red Blood Count 3.77 10^6/uL (3.63-4.92); Red Cell Distribution Width 14.3 % (12-17); White Blood Count 8.9 10^3/uL (3.8-11.8)
[2023-01-26] MEDS ORDERED: Morphine PF AMP (0.5MG/ML) 5 MG/10 ML AMP ONE (07:50)
[2023-01-26] MEDS ORDERED: Acetaminophen IV 1 GM/100ML 1,000 MG/100 ML BAG IV PRN (08:38)
[2023-01-26] MEDS ORDERED: Ondansetron 4 mg VIAL 2 MG/ML 2 ml VIAL IV PRN (08:38)
[2023-01-26] MEDS ORDERED: Naloxone 0.4 mg VIAL 0.4 mg/ml 1 ml VIAL IV PUSH PRN (08:38)
[2023-01-26] MEDS ORDERED: Metoclopramide 5 MG/ML VIAL (10 mg) IV PRN (08:38)
[2023-01-26] MEDS ORDERED: Acetaminophen IV 1 GM/100ML 1,000 MG/100 ML BAG IV ONE (09:15)
[2023-01-26 09:22] LABS: Urine Appearance Clear; Urine Bilirubin Negative (Negative); Urine Blood Negative (Negative); Urine Color Straw; Urine Glucose Negative (Negative); Urine Ketones Negative (Negative); Urine Nitrite Negative (Negative); Urine Protein Negative (Negative); Urine Specific Gravity 1.003 (1.002-1.030); Urine Urobilinogen Negative (Negative)
[2023-01-26] MEDS ORDERED: Glycerin ADULT 2.4 gm SUPP PR PRN (10:00)
[2023-01-26] MEDS ORDERED: Witch Hazel PAD JAR TOPICAL PRN (10:00)
[2023-01-26] MEDS ORDERED: Methylergonovine 0.2 mg AMPULE 1 ml AMP IM ONE (12:35)
[2023-01-26] MEDS: Oxytocin in LR 20,000 MILLI.UNIT/1,000 ML BAG IV SCH ×2 (12:38→19:26)
[2023-01-26] MEDS ORDERED: fentaNYL 100 mcg/2 ml 50 MCG/ML VIAL IV SLOW PU ONE (14:15)
[2023-01-26 14:53] LABS: Hemoglobin 8.6 g/dL (11.5-14.3); Mean Corpuscular Hemoglobin 26.9 pg (27-33); Mean Corpuscular Volume 81.3 fL (80-97); Mean Platelet Volume 7.7 fL (7.5-11.2); Platelet Count 257 10^3/uL (150-450); Red Cell Distribution Width 14.6 % (12-17); White Blood Count 18.4 10^3/uL (3.8-11.8)
[2023-01-26 14:59] LABS: Activated Partial Thrombo Time 24.6 seconds (26.0-38.0); INR 1.01 (0.83-1.13)
[2023-01-26] MEDS: Nicotine PATCH 21 MG/24 HR PATCH TRANSDERM SCH (15:42)
[2023-01-26] MEDS ORDERED: ceFAZolin 2 GM in NS PREMIX 2 GM/100 ML BAG IVPB ONE (20:20)
[2023-01-26 22:59] LABS: Hematocrit 21.7 % (35-45); Hemoglobin 7.4 g/dL (11.5-14.3)
[2023-01-27] MEDS: Nicotine PATCH 21 MG/24 HR PATCH TRANSDERM SCH ×2 (09:03→17:34)
[2023-01-27 09:52] LABS: ABS Lymphocytes 3.3 10^3/uL (1.0-4.8); ABS Monocytes 0.8 10^3/uL (0.0-0.9); ABS Neutrophils 9.7 10^3/uL (1.5-7.6); ABS Nucleated RBC 0.02 10^3/ul; Eosinophil % 0.1 %; Hematocrit 23.2 % (35-45); Hemoglobin 7.9 g/dL (11.5-14.3); Lymphocyte % 23.5 %; Mean Corpuscular Hemoglobin 27.6 pg (27-33); Mean Corpuscular Volume 81.2 fL (80-97); Mean Platelet Volume 7.3 fL (7.5-11.2); Nucleated Red Blood Cells % 0.1 %/100WBC (0.0-0.8); Platelet Count 231 10^3/uL (150-450); Red Blood Count 2.86 10^6/uL (3.63-4.92); Red Cell Distribution Width 14.3 % (12-17); White Blood Count 13.8 10^3/uL (3.8-11.8)
[2023-01-28 08:42] VITALS: BP 128/85
[2023-01-28] MEDS: Nicotine PATCH 21 MG/24 HR PATCH TRANSDERM SCH (09:16)
== END 2023-01-28 13:30 | disposition home or self-care (01) | DRG 540 ==
LOC: MCHOB 05:43
PROVIDERS: ADMIT Obstetrics & Gynecology; ATTEND Obstetrics & Gynecology